=== PATIENT | female | born 1945 | race Caucasian/White ===

== ENCOUNTER 2020-02-29 10:21 | Observation (INO) | payer MEDICARE, SELFPAY ==
[2020-02-29] VITALS (9 sets, daily range): BP systolic 139–168; BP diastolic 54–92; PULSE 58–74; RESP 16–20; TEMP 36.4–36.8; O2SAT 97–100; BMI 36.0; BMI 36.2
--- NOTE | 2020-02-29 10:00 | CT_ITS ---
PROCEDURE: CT HEAD/BRAIN WO CON Referring Doctor: Isma Duggan Patient Age:74Y CLINICAL INDICATION: possible CVA AMS Mental status changes COMPARISON: No exams were available for comparison TECHNIQUE: No IV contrast. Standard axial images were obtained. All CT scans at the facility use one or more dose reduction, viz: automated exposure control, ma/kV adjustment per patient size (including targeted exams where dose is matched to indication, i.e. head), or iterative reconstruction technique. FINDINGS: No intracranial hemorrhage. No discrete acute intracranial findings. No acute territorial infarct appreciated by CT. The head notably tilted in the CT gantry which accounts the asymmetry in the appearance the brain. This along with some minimal associated motion this yield some asymmetric streak artifact pattern. Which slightly degrades images but overall diagnostic study . Cerebral atrophy with what appear to be chronic small vessel microangiopathic ischemic gliotic changes at cerebral hemispheres bilaterally-which appear to account accounting for the patchy low-density in deep white matter. This features most notable above the atria of the lateral ventricles. The mild prominence of lateral ventricles reflects the cerebral atrophy but otherwise the lateral ventricles are clear basal cisterns unremarkable no hydrocephalus.The ventricles and basal cisterns appear clear and satisfactory. No mass or midline shift nor mass effect. No subdural or extra-axial fluid collection is evident. Posterior fossa unremarkable. Skull intact- calvarium unremarkable. Nomastoid effusions. Mastoid air cells are clear but the left mastoid air cell as more developed than the right. Notable cerumen at along external auditory canals bilaterally most evident on left. Middle ear clear. IAC's symmetric. Nosinus air-fluid level. Visualized portions of the paranasal sinuses unremarkable. IMPRESSION: No acute intracranial findings Head is asymmetric in the gantry and there is some minimal motion streak artifact but overall adequate diagnostic study with nothing definitely acute. . Diffuse cerebral atrophy. Chronic small vessel White-matter ischemic gliotic changes at cerebral hemispheres bilaterally Moderate/generous cerumen external auditory canal bilaterally incidentally noted Dictated by: Kirill Villalta MD 02/29/2020 10:28 Kirill Villalta MD in [place] 02/29/2020 10:28
--- NOTE | 2020-02-29 10:04 | PC.NURSE ---
pt to rad.
--- NOTE | 2020-02-29 10:08 | HMH.EDGENADL ---
ED Disposition Clinical Impression: Stroke Disposition: Admitted As Inpatient Condition on Discharge: Fair - Critical Care Critical Care Time: No Attestation: On , the high probability of a clinically significant, sudden or life threatening deterioration of the following system(s) required my full and direct attention, intervention and personal management. The time I documented below is in addition to time spent performing reported procedures but includes the following listed in this critical care notation. Medical Decision Making - Medical Records Medical records reviewed: Yes: I reviewed the patient's medical records. - Ori Inquiry Pt receiving controlled substance: No Vital Signs: 02/29/20 10:00 02/29/20 10:39 02/29/20 11:45 Pulse Rate [Right Brachial] 60 72 65 Respiratory Rate 18 Blood Pressure [Right Arm] 158/69 H 155/79 H 168/92 H Blood Pressure Mean [Right Arm] 98 104 117 Blood Pressure Source [Right Arm] Automatic Cuff Automatic Cuff Blood Pressure Position [Right Arm] Sitting Sitting Sitting 02 Sat by Pulse Oximetry 99 97 100 Oxygen Delivery Method Room Air Room Air Nasal Cannula Oxygen Flow Rate (LPM) 2 - Lab Data Lab results reviewed: Yes: I reviewed the patient's lab results. Lab Results 02/29/20 10:00: WBC 8.0, RBC 4.25, Hgb 11.4 L, Hct 37.1, MCV 87.2, MCH 26.9 L, MCHC 30.8 L, RDW 16.2, Plt Count 355, MPV 8.0, Neut % (Auto) 66.1, Lymph % (Auto) 21.2, [place] % (Auto) 8.4, Eos % (Auto) 3.5, Baso % (Auto) 0.8, Neut # (Auto) 5.3, Lymph # (Auto) 1.7, [place] # (Auto) 0.7, Eos # (Auto) 0.3, Baso # (Auto) 0.1 02/29/20 10:00: Sodium 131 L, Potassium 4.3, Chloride 90 L, Carbon Dioxide 36 H, Anion Gap 9.3, BUN 4 L, Creatinine 0.60, Estimated Creat Clear 81, Estimated GFR 98, Est GFR ( Amer) 118, Glucose 104 H, Calcium 8.9, Total Bilirubin 0.5, AST 26, ALT 13, Alkaline Phosphatase 90, Troponin I < 0.01, Total Protein 7.0, Albumin 3.9, Globulin 3.1, Albumin/Globulin Ratio 1.3 02/29/20 10:00: SARS-CoV-2 IgG Ab (Rapid) Negative, SARS-CoV-2 IgM Ab (Rapid) Negative Result diagrams: 02/29/20 10:00 02/29/20 10:00 Orders (Tests/Meds): ORDERS Category Date Time Status Troponin I Q3H Lab 02/29/20 13:15 Ordered Troponin I Q3H Lab 02/29/20 16:15 Ordered ECG Request by /Nse Stat Y 02/29/20 10:02 Ordered Medical Decision Narrative: Patient is a 74-year-old female with a history of TIA who presents the emergency department today with slurred speech and weakness. Turn for ischemic stroke, hemorrhagic stroke, conversion disorder. Stable. Mildly hypertensive in the 170s. Patient is outside the TPA window. Signs and symptoms consistent with a left MCA territory ischemic stroke. CBC, CMP, troponins, EKG, CT head ordered. Labs and EKG nonactionable. CT head showed no ischemic or hemorrhagic stroke, however there was motion artifact. Admit to medicine for ischemic stroke. General Adult HPI - General Chief complaint: Weakness Stated complaint: weakness Time Seen by Provider: 02/29/20 10:08 Mode of Arrival: EMS Limitations: No Limitations Description of Symptoms (Recalled from ER Triage Doc. by RN): Patient reports she has been feeling off since yesterday. Patient reports she was driving home and started to feel werid and had to pull socket assembler and let someone else drive. Patient reports she had also had trouble getting her words out like she wants and feeling weak all over. - History of Present Illness HPI narrative: Patient is a 74-year-old female with a history of TIA, COPD on 2 L of oxygen at baseline who presents the emergency department today with difficulty speaking. Patient states several days ago she was driving when she began to feel strange. Unable to specify symptoms. Stop driving and she had a fall yesterday. Today she continued to feel off so she came in for evaluation. Patient states she feels generally weak and has slurred speech and difficulty getting her words out. No feve
[2020-02-29 10:19] LABS: Basophils # 0.1 K/mm3 (0-0.2); Basophils % 0.8 % (0.1-2.0); Eosinophils # 0.3 K/mm3 (0.0-0.4); Eosinophils % 3.5 % (0.1-12.0); Hematocrit 37.1 % (37.0-47.0); Hemoglobin 11.4 g/dL (12.2-16.2); Lymphocytes # 1.7 K/mm3 (0.7-4.5); Lymphocytes % 21.2 % (10-50); Mean Corpuscular HGB Conc 30.8 g/dL (31.8-35.4); Mean Corpuscular Hemoglobin 26.9 pg (27.0-31.2); Mean Corpuscular Volume 87.2 fl (81-99); Monocytes # 0.7 K/mm3 (0.1-1.0); Monocytes % 8.4 % (1.7-9.3); Neutrophils # 5.3 K/mm3 (1.8-7.8); Neutrophils % 66.1 % (37.0-80.0); Platelet Count 355 K/mm3 (142-424); Red Blood Count 4.25 M/mm3 (4.20-5.40); Red Cell Distribution Width 16.2 % (11.5-17.5)
[2020-02-29 10:23] LABS: Chloride 90 mmol/L (98-107); Potassium 4.3 mmoL/L (3.5-5.1); Sodium 131 mmol/L (136-145)
[2020-02-29 10:26] LABS: Alanine Aminotransferase 13 U/L (12-78); Albumin Level 3.9 g/dl (3.5-5.0); Albumin/Globulin Ratio 1.3 (1.1-1.8); Alkaline Phosphatase 90 U/L (38-126); Anion Gap 9.3 mEq/L (5-15); Aspartate Amino Transferase 26 U/L (14-36); Bilirubin,Total 0.5 mg/dl (0.2-1.3); Blood Urea Nitrogen 4 mg/dl (7-17); Carbon Dioxide 36 mmol/L (22.0-30.0); Creatinine Clearance Estimated 81 mL/min (50-200); Estimated Glomerular Filt Rate 98 ml/min (>60); GFR (African American) 118 ML/MIN (>60); Globulin 3.1 g/dL (1.3-3.2)
--- NOTE | 2020-02-29 10:26 | PC.NURSE ---
back from CT
[2020-02-29 10:27] LABS: Calcium 8.9 mg/dl (8.4-10.2); Glucose 104 mg/dl (74-100)
[2020-02-29 10:41] LABS: Troponin I < 0.01 ng/ml (0.00-0.034)
--- NOTE | 2020-02-29 10:44 | ECG_ITS ---
APPROVED REPORT Exam: Resting ECG HR:59 bpm ECG Measurements Heart Rate 59 AXES FL 188 P 52 QRSd 88 QRS 11 QT 450 T 3 QTc 445 Conclusion Sinus bradycardia Nonspecific ST abnormality Abnormal ECG Electronically signed by : Carlos Villalobos, 03/01/2020 06:52:53
[2020-02-29 10:45] LABS: Coronavirus 19 IgG Antibody Negative (Negative); Coronavirus 19 IgM Antibody Negative (Negative)
--- NOTE | 2020-02-29 10:58 | PC.NURSE ---
Dr Chepe rodríguez.
--- NOTE | 2020-02-29 11:34 | PC.NURSE ---
Called Dr Mo's office again and the office number went straight to voicemail. Had gear cutting machine operator page him at this time.
--- NOTE | 2020-02-29 11:48 | PC.NURSE ---
speaking to dr medina
--- NOTE | 2020-02-29 14:39 | XR_ITS ---
PROCEDURE: XR CHEST PORTABLE Referring Doctor: Deandre Mo Patient Age:74Y CLINICAL HISTORY: SOA. No previous studies COMPARISON: No exams were available for comparison FINDINGS: Portable upright AP chest with no previous studies for comparison. Upper lung dubois appear clear and mildly hyperexpanded There is mild accentuation markings of the lung bases bilaterally.. This may in part be due to less than optimal inspiration, as the diaphragm is only down to the anterior 4th rib on today's study. At the left base there is some linear density extending towards left CP angle I suspect this reflects minimal linear atelectasis but difficult to exclude early infiltrate lateral left base subtle density at the left CP angle most likely reflecting these features. Of possible scant left pleural effusion could contribute to density left CP angle Mild accentuation markings at the right infrahilar region right base most likely reflecting chronic change but difficult to exclude subtle early infiltrate Heart upper normal in size with normal pulmonary vascularity. No pneumothorax. Ribs and chest wall otherwise unremarkable IMPRESSION: Mild accentuation markings lung bases particularly left lung base but most likely reflects less than optimal inspiration-yielding mild bibasilar atelectasis, along with mild chronic changes . Linear atelectasis atelectasis at lateral left lung base most notable.. (Difficult to the totally exclude subtle early basilar infiltrates with the current appearance but radiographically tend to favor viewing chronic changes and atelectasis at lung bases but correlation required) Dictated by: Kirill Villalta MD 02/29/2020 18:19 Kirill Villalta MD in [place] 02/29/2020 18:19
--- NOTE | 2020-02-29 14:39 | HMH.HP ---
*Admission Date: 02/29/20 *Chief complaint: TIA vs stroke, focal weakness *History of present illness: 74-year-old female who recently moved to [place]. Has significant comorbidities consisting of obesity, COPD on chronic oxygen, A. fib, and depression. She presented to the ER after experiencing 1 to 2 days of slight confusion, difficulty with word finding, and right-sided weakness. She states having noted weakness while driving but denies any loss of consciousness, inability to drive or control vehicle. She thought the symptoms would pass but as they were not better today, she decided to come to the ER for further assessment. On arrival she was noted to have some mild hypertension. CT of her head was unremarkable with no acute findings, chronic microvascular changes. Stable on her baseline 2 L of oxygen. Neuro exam per ER concerning for some right-sided facial droop and weakness in right upper extremity. She was admitted for further management of suspected TIA versus stroke. Given duration of symptom onset, she is outside the window for TPA. On my assessment, she is pleasant with no complaint of worsening shortness of breath, increased cough beyond baseline, chest pain, nausea, vomiting. She does complain of lower extremity weakness though this is arguable as to whether it is new or not. She also states she is got some right-sided soreness and weakness. Her significant other who is with her reports that she has been doing more moving and lifting over the past few weeks due to their move to [place] and this may be a cause for some of her soreness. He also reports that some of her words are more slurred than usual however I did no difficulty understanding speech and interview was performed without her having teeth in place. [facility] History I have reviewed the patient's past medical history: Yes Medical History: Reports:: Atrial Fibrillation, Chronic Obstructive Pulmonary Disease (COPD), Hypertension Denies:: Cancer, Diabetes Mellitus Type 1, Diabetes Mellitus Type 2, MRSA *Have you ever received a pneumonia vaccine?: Yes *Have you received a flu vaccine this season?: Yes Other Medical History: Reports: Fibromyalgia Laterality Cases: Left: Arthroscopy Shoulder Other Surgeries: Yes: Appendectomy, Colonoscopy, Hysterectomy-Total Amputation: No Fractures: No - *Social History Last grade of school completed: GED Smoking Status: Smoker, status unknown Alcohol Intake: current Alcohol Intake Frequency:: 0-2 drinks per day *Occupational Status:: disabled Housing: house Household Members: significant other, family *Travel in the last 8 weeks: Inside the [place] Family Hx:: Unable to obtain Review of Systems - Review of Systems Review of systems:: pertinent systems reviewed and negative unless documented below (14 point review of systems performed, pertinent positives and negatives as per HPI) Meds Home Medications Medication Instructions Recorded Confirmed Type ARIPiprazole [Abilify] 5 mg PO DAILY 02/29/20 02/29/20 History Apixaban [Eliquis 5mg Tablet] 5 mg PO BID 02/29/20 02/29/20 History Aspirin [Adult Aspirin Regimen] 81 mg PO DAILY 02/29/20 02/29/20 History Levocetirizine Dihydrochloride 5 mg PO DAILY 02/29/20 02/29/20 History Loratadine 10 mg PO NEEDED PRN 02/29/20 02/29/20 History Metoprolol Tartrate [Lopressor 100 mg PO BID 02/29/20 02/29/20 History 100mg Tablet] Montelukast Sodium 10 mg PO DAILY 02/29/20 02/29/20 History Pantoprazole Sodium 40 mg PO DAILY 02/29/20 02/29/20 History Trazodone HCl 100 mg PO HS 02/29/20 02/29/20 History buPROPion HCL [Bupropion HCl Sr] 450 mg PO DAILY 02/29/20 02/29/20 History Allergies Allergy/AdvReac Type Severity Reaction Status Date / Time No Known Allergies Allergy Verified 02/29/20 10:08 Exam Vital signs and Labs for Last 24 Hours: Temp Pulse Resp BP Pulse Ox 97.6 F 58 L 20 163/84 H 99 02/29/20 12:59 02/29/20 12:59 02/29/20 12:59 02/29/20 12:59
[2020-02-29 14:48] LABS: Hemoglobin A1C 5.4 % (4.0-6.0)
--- NOTE | 2020-02-29 14:58 | ECG_ITS ---
APPROVED REPORT Exam: Resting ECG HR:61 bpm ECG Measurements Heart Rate 61 AXES ND 162 P 57 QRSd 88 QRS 17 QT 448 T 33 QTc 450 Conclusion Normal sinus rhythm Nonspecific ST abnormality Abnormal ECG Electronically signed by : Carlos Villalobos, 03/01/2020 06:52:18
[2020-02-29 15:00] LABS: NT Pro Brain Natriuretic Pep. 683 pg/mL (0-125)
[2020-02-29 15:23] LABS: ABG Base Excess 5.9 mmol/L (-2.4-2.3); ABG HCO3 31.1 mmhg (22.0-26.0); ABG Oxygen Saturation 98 % (90-100); ABG PH 7.37 mmol/L (7.35-7.45); ABG PO2 111.7 mmhg (80-100); ABG TCO2 32.8 mmhg (23-27)
[2020-02-29 15:27] LABS: ABG PCO2 54.7 mmhg (35.0-45.0); Allen's Test Non Applicable; Source Left Brachial
[2020-02-29 16:04] LABS: Ammonia 12 umol/L (9-30)
--- NOTE | 2020-02-29 16:45 | PC.NURSE ---
Notified Dr. Mo about CO2 of 54.7.
--- NOTE | 2020-02-29 17:00 | PC.NURSE ---
Dr. Mo called and requested patient get a one time dose of lasix 40mg IV. Order faxed to pharmacy and administered. He also requested pt wear a bipap tonight while sleeping due to elevated CO2. Pt aware and she agrees. Respiratory aware. Will pass along to nightman RN. Speech came and assessed the pt. They feel she would be best to have nectar thick liquids with a mechanical soft diet and chopped meats. Order placed and Dr. Mo is aware.
--- NOTE | 2020-02-29 17:29 | HMH.SLDYSPHA ---
Speech & Language Evaluation Speech/Language Dysphagia Evaluation Start: 02/29/20 17:14 Freq: ONCE Status: Active Protocol: Document 02/29/20 17:14 TOYIN (Rec: 02/29/20 17:28 TOYIN [id number]) Dysphagia Assess/Goals/Plan Assessment Date of Evaluation: 02/29/20 Evaluation Type Initial Certification Assessment/Problems dysphagia Does Patient Qualify for Service Yes Qualify/Failure Comment Patient presents with right sided weakness of face and neck; She reports an increased difficulty with swallowing various consistencies over the past few days; Ms. Pascal did not have her dentures with her today, she was able to follow verbal commands and appears to be a good canditate for therapy if her weakness does not resolve on its own. Recommendations PHYSICIAN CERTIFICATION: The specified therapy services are required, authorized, and reviewed every 30 days. Diet Recommendations Mechanical Soft Liquid Type Recommendations [place] Consistency SL Swallow Guidelines High aspiration risk,Eat at slow rate Dysphagia Swallow Precautions/Strategies Turn Head Right Place Food on Left side of Mouth Comment Patient will be followed by speech therapy to evaluate for diet upgrades after she regains some strength and has her dentures to eat and drink with. Plan Pt/Guardian verbally ack understanding Yes of dx/prognosis/goals Pt/Guardian verbally ack understanding Yes of/consent to tx prog G -code Required No Shelter Goals Diet Mechanical soft with chopped meats with Liquids [place] Thick Pt will be able to eat foods w/more Yes normal consistency Education Instructions provided Patient and nursing staff were educated on diet recommendation as well as compensatory strategies; Pt/Caregiver able to recall information Able to recall/restate Reinforcement needed No Speech & Language HPI History Present Illness Description of Patient Problem Patient presents with right side weakness; She was alert and oriented. She was able to
--- NOTE | 2020-02-29 17:36 | PC.NURSE ---
Dietary aware of diet change.
--- NOTE | 2020-02-29 18:21 | PC.NURSE ---
PT HAS TOLERATED 2L NC WELL THROUGHOUT SHIFT. WILL PASS ALONG TO CAREER CENTER DIRECTOR RN TO HOLD TRAZODONE UNLESS PT IS UNABLE TO FALL ASLEEP BY [address] GUTIERREZ. NO REPORTS OF PAIN OR SOB. PT HAS DIURESED WELL AFTER RECEIVING LASIX. CLEAR YELLOW URINE NOTED. PT HAS HAD 2 LIQUID BM THUS FAR. PT IS CURRENTLY SITTING IN BED WITH CALL LIGHT WITHIN REACH. BED IN LOWEST POSITION. VSS. WILL CONTINUE TO MONITOR.
--- NOTE | 2020-03-01 00:58 | PC.NURSE ---
patient tolerating bipap without incident. purwick in place for incontinence
[2020-03-01 03:46] VITALS: BP 153/72; PULSE 64; RESP 21; TEMP 37.3; O2SAT 98
--- NOTE | 2020-03-01 04:18 | PC.NURSE ---
patient requested break off of bipap, o2 at 2 l nc applied. patient consistently word bipap for 5 hours while sleeping
--- NOTE | 2020-03-01 05:10 | PC.NURSE ---
patient ready to go back on cpap, patient stated she has been in the process of moving and she didn't know which box her home cpap was in .
--- NOTE | 2020-03-01 05:18 | PC.NURSE ---
patient discussed cpap with respiratory therapy and decided to leave mask off and remain on nc at 2 l .
--- NOTE | 2020-03-01 05:19 | PC.NURSE ---
breath sounds remain course and diminished, sats 98% on 2 l nc. patient remains awake alert and oriented, continues to have slight weakness and decreased sensation to right lower extremity. pulse irregular, purwick in place for nocturnal incontinence.
[2020-03-01 05:28] VITALS: BMI 35.0
[2020-03-01 07:01] LABS: Basophils # 0.1 K/mm3 (0-0.2); Basophils % 0.7 % (0.1-2.0); Eosinophils # 0.2 K/mm3 (0.0-0.4); Eosinophils % 3.3 % (0.1-12.0); Hematocrit 36.2 % (37.0-47.0); Lymphocytes # 1.9 K/mm3 (0.7-4.5); Lymphocytes % 25.7 % (10-50); Mean Corpuscular HGB Conc 30.5 g/dL (31.8-35.4); Mean Corpuscular Hemoglobin 26.8 pg (27.0-31.2); Mean Corpuscular Volume 87.8 fl (81-99); Mean Platelet Volume 7.5 fl (7.4-10.4); Monocytes # 0.5 K/mm3 (0.1-1.0); Monocytes % 7.3 % (1.7-9.3); Neutrophils # 4.6 K/mm3 (1.8-7.8); Neutrophils % 63.1 % (37.0-80.0); Platelet Count 336 K/mm3 (142-424); Red Blood Count 4.13 M/mm3 (4.20-5.40); Red Cell Distribution Width 16.3 % (11.5-17.5); White Blood Count 7.3 K/mm3 (4.8-10.8)
[2020-03-01 07:18] LABS: Alanine Aminotransferase 11 U/L (12-78); Albumin Level 3.5 g/dl (3.5-5.0); Albumin/Globulin Ratio 1.2 (1.1-1.8); Alkaline Phosphatase 95 U/L (38-126); Anion Gap 7.7 mEq/L (5-15); Aspartate Amino Transferase 22 U/L (14-36); Bilirubin,Total 0.3 mg/dl (0.2-1.3); Blood Urea Nitrogen 4 mg/dl (7-17); Calcium 8.7 mg/dl (8.4-10.2); Carbon Dioxide 37 mmol/L (22.0-30.0); Chloride 94 mmol/L (98-107); Creatinine Clearance Estimated 79 mL/min (50-200); Estimated Glomerular Filt Rate 98 ml/min (>60); GFR (African American) 118 ML/MIN (>60); Glucose 117 mg/dl (74-100); Magnesium 1.9 mg/dl (1.6-2.3); Potassium 3.7 mmoL/L (3.5-5.1); Sodium 135 mmol/L (136-145); Total Protein,Serum 6.5 g/dl (6.3-8.2)
[2020-03-01 08:00] VITALS: BP 133/77; PULSE 66; RESP 16; TEMP 36.9; O2SAT 97
--- NOTE | 2020-03-01 09:01 | HMH.ACPN2 ---
Internal Medicine - PN: Subj *Date: 03/01/20 *Time: 10:05 Interval history: no acute events overnight. Patient was seen by speech therapy yesterday. Adjustments made to her diet with thickened liquids and pur?es. Received a dose of Lasix last night as well, put out about 2 L. Is -800 cc as of this morning. Stable on 2 L nasal cannula oxygen. Patient denies any new deficits, headache, chest pain, nausea, worsening shortness of breath. Ambulating with minimal assistance to the bathroom. Afebrile, hemodynamically stable. Exam Vital signs and Labs for Last 24 Hours: Temp Pulse Resp BP Pulse Ox 99.1 F 64 21 153/72 H 98 03/01/20 03:46 03/01/20 03:46 03/01/20 03:46 03/01/20 03:46 03/01/20 03:46 Laboratory Results - last 24 hr 02/29/20 10:00: WBC 8.0, RBC 4.25, Hgb 11.4 L, Hct 37.1, MCV 87.2, MCH 26.9 L, MCHC 30.8 L, RDW 16.2, Plt Count 355, MPV 8.0, Neut % (Auto) 66.1, Lymph % (Auto) 21.2, [place] % (Auto) 8.4, Eos % (Auto) 3.5, Baso % (Auto) 0.8, Neut # (Auto) 5.3, Lymph # (Auto) 1.7, [place] # (Auto) 0.7, Eos # (Auto) 0.3, Baso # (Auto) 0.1 02/29/20 10:00: Sodium 131 L, Potassium 4.3, Chloride 90 L, Carbon Dioxide 36 H, Anion Gap 9.3, BUN 4 L, Creatinine 0.60, Estimated Creat Clear 81, Estimated GFR 98, Est GFR ( Amer) 118, Glucose 104 H, Calcium 8.9, Total Bilirubin 0.5, AST 26, ALT 13, Alkaline Phosphatase 90, Troponin I < 0.01, Total Protein 7.0, Albumin 3.9, Globulin 3.1, Albumin/Globulin Ratio 1.3 02/29/20 10:00: SARS-CoV-2 IgG Ab (Rapid) Negative, SARS-CoV-2 IgM Ab (Rapid) Negative 02/29/20 10:00: Hemoglobin A1c 5.4 02/29/20 10:00: TSH 2.90 02/29/20 10:00: NT-Pro-B Natriuret Pep 683 H 02/29/20 14:15: Specimen Source Left brachial, O2 % 2 lpm nc, ABG pH 7.37, ABG pCO2 54.7 H, ABG pO2 111.7 H, ABG HCO3 31.1 H, ABG Total CO2 32.8 H, ABG O2 Saturation 98, ABG Base Excess 5.9 H, Juice Test Non applicable 02/29/20 15:45: Ammonia 12 03/01/20 06:45: WBC 7.3, RBC 4.13 L, Hgb 11.0 L, Hct 36.2 L, MCV 87.8, MCH 26.8 L, MCHC 30.5 L, RDW 16.3, Plt Count 336, MPV 7.5, Neut % (Auto) 63.1, Lymph % (Auto) 25.7, [place] % (Auto) 7.3, Eos % (Auto) 3.3, Baso % (Auto) 0.7, Neut # (Auto) 4.6, Lymph # (Auto) 1.9, [place] # (Auto) 0.5, Eos # (Auto) 0.2, Baso # (Auto) 0.1 03/01/20 06:45: Sodium 135 L, Potassium 3.7, Chloride 94 L, Carbon Dioxide 37 H, Anion Gap 7.7, BUN 4 L, Creatinine 0.60, Estimated Creat Clear 79, Estimated GFR 98, Est GFR ( Amer) 118, Glucose 117 H, Calcium 8.7, Magnesium 1.9, Total Bilirubin 0.3, AST 22, ALT 11 L, Alkaline Phosphatase 95, Total Protein 6.5, Albumin 3.5 D, Globulin 3.0, Albumin/Globulin Ratio 1.2 I & O for Last 24 hours: Intake & Output 02/27/20 02/28/20 02/29/20 03/01/20 23:59 23:59 23:59 23:59 Intake Total 980 / 980 Output Total 1100 / 1300 800 / 800 Balance -120 / -320 -800 / -800 Weight 104.978 kg 101.321 kg Narrative: - Constitutional no acute distress, obese, chronically ill appearing - *Routine HEENT Exam Head: Present: normocephalic Eye: Present: EOMI, PERRL ENT: Present: mucous membranes moist Comments: Edentulous, wears dentures - *Routine Neck Exam Present: supple. Absent: lymphadenopathy - *Routine Respiratory Exam Present: prolonged expiratory phase, significant improvement in crackles, diminished air movement. Absent: wheezes - *Routine Cardiovascular Exam Present: RRR - *Routine Abdominal Exam Present: soft, normoactive bowel sounds. Absent: tenderness Comments: Protuberant - *Routine Extremities Exam Present: edema (Trace). Absent: cyanosis, clubbing Comments: Chronic stasis dermatitis of lower extremities, pulses weak in bilateral lower extremities - *Routine Skin Exam Present: warm. Absent: rash - *Routine Neurological Exam Present: alert, oriented X3. Absent: clonus, tremors Almost complete resolution of asymmetry of right forehead with elevation, remainder of cranial nerves intact. Speech intelligible with teeth out, more clear with demetrice
--- NOTE | 2020-03-01 12:04 | HMH.PTEV ---
Physical Therapy Evaluation Rehab PT IP Evaluation Start: 02/29/20 14:41 Freq: ONCE Status: Active Protocol: Document 03/01/20 12:00 PHORPÉREZ (Rec: 03/01/20 12:04 PHORNE [id number]) Subjective/History History History 74 yowf adm to [facility] with R sided weakness, facial droop, and general malaise. She reports living with family, no steps to enter the home, uses a quad cane for ambulation. She reports feeling better today, no c/o numbness or weakness at this time. Subjective Subjective No current c/o pain or weakness. Rehab PT IP Eval Objective Appearance Patient Behavior Appropriate Patient Orientation Person,Place,Time Difficulty following instructions none Speech Pattern Clear Ambulation Patient Able to Ambulate Yes Ambulation Observation IP General Gait Pattern Observation Wide Based Gait Ambulation Distance (feet) 20 Ambulation Assistive Device Straight Cane Ambulation Ability Supervision/Stand by Balance Ability to Arise Able, uses arms to help Sitting Balance Steady, safe Standing Balance Steady, wide stance Dynamic Sitting Balance Ability Good Dynamic Standing Balance Ability Good Transfers Bed Transfer Ability Supervision/Stand by Chair Transfer Ability Supervision/Stand by Sit to Stand Bed Transfer Ability Supervision/Stand by Sit to Stand Chair Transfer Ability Supervision/Stand by ROM All Extremities PT ROM Status WFL MMT All Extremities PT MMT WFL Rehab PT IP prob,goals,plan Problems Date of Evaluation: 03/01/20 Discharge Plan PT Discharge Plan Pt appears to be back to baseline for mobility and transfers, no discernable difference in strength from R to L sides. Pt is appropriate to return home once medically stable, no inpatient therapy needs at this time. She would likely benefit from outpatient therapy services. G -code Required No Eval Complexity Eval Charge Codes 36292 - Moderate Complexity PHYSICIAN CERTIFICATION: I certify the specified therapy services for Sharifa Pascal are required, authorized, and reviewed every 30 days.
--- NOTE | 2020-03-01 13:28 | HMH.PHAVTE ---
[facility] Pharmacy VTE Monitoring - Patient Demographics Admission date: 03/01/20 Report Date: 03/01/20 Time: 13:28 Allergies/Adverse Reactions: Patient Allergies No Known Allergies Allergy (Verified 02/29/20 10:08) Height: 1.7 m Weight: 101.321 kg Patient Problems: Current Active Problems Stroke (Acute) Hypertension (Chronic) A-fib (Chronic) Chronic anticoagulation (Chronic) Obesity (BMI 30-39.9) (Chronic) Acute exacerbation of CHF (congestive heart failure) (Acute) Chronic hypoxemic respiratory failure (Chronic) Hypercapnia (Acute) COPD (chronic obstructive pulmonary disease) (Chronic) Depression (Chronic) - VTE Risk Labs: VTE Related Lab Results Hgb 11.0 g/dL (12.2-16.2) L 03/01/20 06:45 Hct 36.2 % (37.0-47.0) L 03/01/20 06:45 Plt Count 336 K/mm3 (142-424) 03/01/20 06:45 BUN 4 mg/dl (7-17) L 03/01/20 06:45 Creatinine 0.60 mg/dl (0.52-1.04) 03/01/20 06:45 Estimated Creat Clear 79 mL/min (50-200) 03/01/20 06:45 Was VTE Risk Assessment Performed: Yes VTE Score: 8 VTE Risk Level: Moderate Risk - Prophylaxis Types of VTE Prophylaxis: TEDS Knee High (KETAN HOSE ORDRED) Location of Applied Device: Not Applicable
[2020-03-01 16:00] VITALS: BP 127/66; PULSE 62; RESP 18; TEMP 36.3; O2SAT 98
--- NOTE | 2020-03-01 17:29 | PC.NURSE ---
PT HAS DONE WELL TODAY. NO C/O PAIN OR SOA. PT HAS BEEN WEARING 2L NC ALL DAY. TRILOGY AT BEDSIDE TO BE WORN TONIGHT. PT HAS AMBULATED T/O ROOM, SAT UP IN HER CHAIR SOME TODAY TOO. VSS. WILL CONT. TO MONITOR.
[2020-03-01 18:10] VITALS: O2SAT 91
[2020-03-01 20:00] VITALS: BP 119/63; PULSE 63; RESP 18; TEMP 36.8; O2SAT 99
[2020-03-02 03:56] VITALS: BP 164/78; PULSE 61; RESP 17; TEMP 36.6; O2SAT 100
--- NOTE | 2020-03-02 03:58 | PC.NURSE ---
No acute changes noted. Pt has been up to BR and BSC this shift with assist x1. Has tolerated well. Total urine output is 300 thus far. She remained on 2L NC until trilogy was placed on pt. She has tolerated it well. No c/o soa. Lungs diminished. BS active. Medications administered per mar. Will continue to monitor.
[2020-03-02 05:04] VITALS: BMI 35.3
[2020-03-02 07:21] LABS: Basophils % 0.4 % (0.1-2.0); Eosinophils # 0.3 K/mm3 (0.0-0.4); Eosinophils % 3.8 % (0.1-12.0); Hematocrit 35.5 % (37.0-47.0); Lymphocytes # 2.1 K/mm3 (0.7-4.5); Lymphocytes % 26.3 % (10-50); Mean Corpuscular HGB Conc 30.9 g/dL (31.8-35.4); Mean Corpuscular Hemoglobin 26.9 pg (27.0-31.2); Mean Platelet Volume 7.7 fl (7.4-10.4); Monocytes # 0.7 K/mm3 (0.1-1.0); Monocytes % 8.3 % (1.7-9.3); Neutrophils # 4.8 K/mm3 (1.8-7.8); Neutrophils % 61.3 % (37.0-80.0); Platelet Count 354 K/mm3 (142-424); Red Blood Count 4.08 M/mm3 (4.20-5.40); Red Cell Distribution Width 16.2 % (11.5-17.5); White Blood Count 7.8 K/mm3 (4.8-10.8)
[2020-03-02 07:24] LABS: Chloride 93 mmol/L (98-107); Potassium 3.7 mmoL/L (3.5-5.1); Sodium 132 mmol/L (136-145)
[2020-03-02 07:26] LABS: Alanine Aminotransferase 9 U/L (12-78); Aspartate Amino Transferase 23 U/L (14-36); Blood Urea Nitrogen 6 mg/dl (7-17); Creatinine Clearance Estimated 80 mL/min (50-200); Estimated Glomerular Filt Rate 121 ml/min (>60); GFR (African American) 146 ML/MIN (>60)
[2020-03-02 07:27] LABS: Albumin Level 3.5 g/dl (3.5-5.0); Albumin/Globulin Ratio 1.2 (1.1-1.8); Alkaline Phosphatase 72 U/L (38-126); Anion Gap 5.7 mEq/L (5-15); Bilirubin,Total 0.5 mg/dl (0.2-1.3); Calcium 8.6 mg/dl (8.4-10.2); Carbon Dioxide 37 mmol/L (22.0-30.0); Globulin 2.9 g/dL (1.3-3.2); Glucose 110 mg/dl (74-100); Total Protein,Serum 6.4 g/dl (6.3-8.2)
[2020-03-02 08:00] VITALS: BP 130/63; PULSE 69; RESP 18; TEMP 36.9; O2SAT 93
--- NOTE | 2020-03-02 08:09 | HMH.DCSUM ---
General - General Admission date:: 02/29/20 Discharge date: 03/02/20 HPI HPI: 74-year-old female who recently moved to [place]. Has significant comorbidities consisting of obesity, COPD on chronic oxygen, A. fib, and depression. She presented to the ER after experiencing 1 to 2 days of slight confusion, difficulty with word finding, and right-sided weakness. She states having noted weakness while driving but denies any loss of consciousness, inability to drive or control vehicle. She thought the symptoms would pass but as they were not better today, she decided to come to the ER for further assessment. On arrival she was noted to have some mild hypertension. CT of her head was unremarkable with no acute findings, chronic microvascular changes. Stable on her baseline 2 L of oxygen. Neuro exam per ER concerning for some right-sided facial droop and weakness in right upper extremity. She was admitted for further management of suspected TIA versus stroke. Given duration of symptom onset, she is outside the window for TPA. On my assessment, she is pleasant with no complaint of worsening shortness of breath, increased cough beyond baseline, chest pain, nausea, vomiting. She does complain of lower extremity weakness though this is arguable as to whether it is new or not. She also states she is got some right-sided soreness and weakness. Her significant other who is with her reports that she has been doing more moving and lifting over the past few weeks due to their move to [place] and this may be a cause for some of her soreness. He also reports that some of her words are more slurred than usual however I did no difficulty understanding speech and interview was performed without her having teeth in place. Hospital Course Hospital Course: Patient was admitted, extensive work-up was done, patient was essentially ruled out for acute stroke with negative CT scan and the fact that her dysphagia and dysarthria improved with putting her dentures in. She was felt to have more of a CHF exacerbation, and considered to have exacerbation of diastolic dysfunction given preliminarily normal ejection fraction on echocardiogram today of 55%. She responded very nicely to Lasix and her blood pressure has been well controlled on metoprolol and LENORA inhibitor. This morning she was feeling great, much better, able to eat and drink well, and she will be discharged home with follow-up in our office to establish care. She will be placed on Lasix daily, she will be placed on her regular medications including statin therapy for her higher vascular disease risk. She will be in the care of her significant other and grandson and follow dietary recommendations as previously. Please note patient will be prescribed 2 L nasal cannula for his chronic COPD. Objective Vital signs: Temp Pulse Resp BP Pulse Ox 97.8 F 61 17 164/78 H 100 03/02/20 03:56 03/02/20 03:56 03/02/20 03:56 03/02/20 03:56 03/02/20 03:56 no acute distress - *Routine HEENT Exam Head: Present: normocephalic Eye: Present: EOMI, PERRL ENT: Present: mucous membranes moist - *Routine Neck Exam Present: supple - *Routine Respiratory Exam Present: CTA bilaterally - *Routine Cardiovascular Exam Present: RRR, murmur - *Routine Abdominal Exam Present: soft, normoactive bowel sounds. Absent: tenderness - *Routine Extremities Exam Absent: cyanosis, clubbing, edema - *Routine Skin Exam Present: warm. Absent: rash - Detailed Eye Exam Eyelids: Bilateral normal inspection Results Labs on day of discharge: Labs from last 24 hours 03/02/20 03/02/20 05:22 05:22 WBC 7.8 RBC 4.08 L Hgb 11.0 L Hct 35.5 L MCV 87.0 MCH 26.9 L MCHC 30.9 L RDW 16.2 Plt Count 354 MPV 7.7 Neut % (Auto) 61.3 Lymph % (Auto) 26.3 [place] % (Auto) 8.3 Eos % (Auto) 3.8 Baso % (Auto) 0.4 Neut # (Auto) 4.8 Lymph # (Auto) 2.1 [place] # (Auto) 0.
[2020-03-02 09:30] VITALS: O2SAT 93
--- NOTE | 2020-03-02 10:38 | PC.NURSE ---
09:30 Late Entry - Routine assessment completed. Pt. A&OX4. Lungs CTA, Heart at RR, BS present x4 quad. Pt. denies pain, and denies needs, will continue to monitor.
--- NOTE | 2020-03-02 12:07 | HMH.PHAINT ---
DISCHARGE COUNSELING-DISCUSSED DISCHARGE MEDICATIONS WITH PATIENT INCLUDING NEW MEDS: PLAVIX, ATORVASTATIN, AND LASIX.
--- NOTE | 2020-03-02 12:47 | PC.NURSE ---
Discharge instructions given, Questions encouraged and answered. Pt. awaiting family member to arrive. Pt. denies further needs.
--- NOTE | 2020-03-02 13:30 | PC.NURSE ---
Pt. left via wheelchair, wiith staff and spouse.
--- NOTE | 2020-03-02 18:28 | CA_ITS ---
APPROVED REPORT EXAM: Comprehensive 2D, Doppler, and color-flow Echocardiogram Technical Program Manager: Madhavi Bryan RT(R) Ht: 5 ft 7 in Wt: 231lbs BSA: 2.15 BP: 153/72 mmHg Indications: CVA,CHF,COPD,SMOKER,HTN,H/O AF TDS SECONDARY TO COPD/BODY HABITUS 2D Dimensions LVOT 1.50 cm (M/F) 1.5-2.5 M-Mode Dimensions RVDd 2.98 cm (0.9-2.6) LA Diam 4.44 cm (1.9-4.0) LVDd 4.85 cm (3.5-5.7) Ao Diam 2.96 cm (2.0-3.7) LVDs 3.60 cm (3.5-5.7) IVSd 0.85 cm (0.6-1.1) PWd 0.80 cm (0.6-1.1) EF (Teich) 50.60% FS 25.80% EDV (Teich) 110.20 mL ESV (Teich) 54.40 mL LV Diastology E Decel Time 253.00 (160-240 msec) E/A Ratio 1.2 MED E' 7.30 (< 7 cm/sec) E'/MED E' Ratio 13.48 (>14) LAT E' 6.00 (<10 cm/sec) E/LAT E' Ratio 16.40 (>14) Aortic Valve LVOT Max 126.00 (70-110 cm/s) LVOT VTI 28.61 cm AoV Peak Berny. 174.00 (50-130 cm/s) AO Peak GR. 12.20 mmHg AO Mean GR. 7.50 (<5 mmHg) AO VTI 39.49 (18-25 cm) ROULA (VTI) 1.28 (2.5-4.5 cm2) Mitral Valve MV E Max Berny. 98.00 (40-130 cm/s) MV A Velocity 79.00 (40-130 cm/s) E/A Ratio 1.25 MV Decel. Time 253.00 (160-240 ms) MV PHT 74.00 ms Tricuspid Valve TR P. Velocity 237.00 cm/s RAP Estimate 10.00 mmHg RVSP 32.50 mmHg Left Ventricle Technically difficult study because of the patient factors and poor acoustic windows. Left atrium is mildly enlarged enlarged, left ventricle is normal size, mild concentric left ventricular hypertrophy, visually estimated ejection fraction 55% with no regional wall motion abnormality, grade 1 diastolic dysfunction seen with tissue Doppler evidence of raise left atrial pressure. Right Ventricle Right atrium and right ventricle mildly enlarged with normal contractility. Aortic Valve Aortic valve is thickened and calcified, Doppler is not indicated for aortic stenosis or aortic insufficiency. Mitral Valve Mitral valve has mitral annular calcification which extends in both anterior posterior mitral leaflet, mitral inflow is not suggestive of mitral stenosis, there is mild mitral regurgitation. Tricuspid Valve Tricuspid valve is grossly normal, there is mild tricuspid regurgitation, tricuspid regurgitation jet velocity is inadequate for calculation of the right ventricular systolic pressure. Pulmonic Valve Pulmonic valve is poorly visualized. Great Vessels Aortic root is normal size. Pericardium No significant pericardial effusion noted. Conclusion 1. Biatrial enlargement, normal left ventricular size, mild concentric left ventricular hypertrophy, visually estimated ejection fraction 55% with no regional wall motion abnormality, grade 1 diastolic dysfunction seen with tissue Doppler evidence of raise left atrial pressure. Technically very difficult study. 2. Mildly enlarged right ventricle with normal contractility. 3. Thickened and calcified aortic valve without Doppler evidence of aortic stenosis aortic insufficiency. 4. Mild mitral and tricuspid regurgitation. 5. No significant pericardial effusion noted. Electronically signed by : Alec Merino, 03/03/2020 06:10:03
== END 2020-03-02 13:30 | disposition home or self-care (01) ==
LOC: ER 12:15 → 2ND 12:24
PROVIDERS: Admitting Provider Internal Medicine Adolescent Medicine; Emergency Provider Emergency Medicine; Visit Provider Internal Medicine Adolescent Medicine
DX: J96.11 Chronic respiratory failure with hypoxia (principal); J44.9 Chronic obstructive pulmonary disease, unspecified; Z99.81 Dependence on supplemental oxygen; I48.0 Paroxysmal atrial fibrillation; I11.0 Hypertensive heart disease with heart failure; I50.32 Chronic diastolic (congestive) heart failure; Z79.01 Long term (current) use of anticoagulants; Z79.899 Other long term (current) drug therapy
CPT/HCPCS: 36415; 70450; 71045; 80053; 82140; 82803; 83036; 83735; 83880; 84443; 84484; 85025; 86328; 92526; 92610; 93005; 93306; 97162; 99284; G0378

== ENCOUNTER 2020-03-04 18:05 | Emergency (ER) | payer MEDICARE, SELFPAY ==
--- NOTE | 2020-03-04 18:03 | ECG_ITS ---
APPROVED REPORT Exam: Resting ECG HR:97 bpm ECG Measurements Heart Rate 97 AXES CO 184 P 59 QRSd 80 QRS 11 QT 360 T 71 QTc 457 Conclusion Normal sinus rhythm Normal ECG Electronically signed by : Carlos Villalobos, 03/06/2020 19:22:18
[2020-03-04 18:06] VITALS: BP 132/63; BP 145/47; PULSE 103; PULSE 106; RESP 20; RESP 23; TEMP 37.2; O2SAT 94; O2SAT 96; BMI 37.1
--- NOTE | 2020-03-04 18:15 | XR_ITS ---
PROCEDURE: XR CHEST PORTABLE CLINICAL HISTORY: sob, shortness of breath, cough COMPARISON: CR XR CHEST PORTABLE from 02/29/2020 FINDINGS: There are low lung volumes. There is cardiomegaly with mild prominence of the mediastinum which may in part be due to the poor inspiration and mild rotation. Follow-up may confirm. Remains mild left basilar atelectasis or infiltrate. Status post left shoulder replacement IMPRESSION: No change mild left basilar atelectasis or infiltrate with cardiomegaly Dictated by: Juice Shaw MD 03/05/2020 06:13 Juice Shaw MD in [place] 03/05/2020 06:13
[2020-03-04 18:41] LABS: Basophils % 0.4 % (0.1-2.0); Eosinophils # 0.2 K/mm3 (0.0-0.4); Eosinophils % 1.6 % (0.1-12.0); Hematocrit 36.6 % (37.0-47.0); Lymphocytes % 19.7 % (10-50); Mean Corpuscular HGB Conc 30.1 g/dL (31.8-35.4); Mean Corpuscular Volume 89.6 fl (81-99); Mean Platelet Volume 7.7 fl (7.4-10.4); Monocytes # 0.8 K/mm3 (0.1-1.0); Monocytes % 7.5 % (1.7-9.3); Neutrophils # 7.3 K/mm3 (1.8-7.8); Neutrophils % 70.9 % (37.0-80.0); Platelet Count 334 K/mm3 (142-424); Red Blood Count 4.09 M/mm3 (4.20-5.40); Red Cell Distribution Width 15.8 % (11.5-17.5); White Blood Count 10.3 K/mm3 (4.8-10.8)
[2020-03-04 18:44] LABS: Chloride 92 mmol/L (98-107)
[2020-03-04 18:45] LABS: Potassium 4.6 mmoL/L (3.5-5.1); Sodium 133 mmol/L (136-145)
--- NOTE | 2020-03-04 18:45 | HMH.EDGENADL ---
ED Disposition Clinical Impression: COPD (chronic obstructive pulmonary disease) Qualifiers: COPD type: unspecified COPD Qualified Code(s): J44.9 - Chronic obstructive pulmonary disease, unspecified Disposition: Home, Self-Care Condition on Discharge: Good Referrals: Deandre Mo MD [Primary Care Provider] - - Critical Care Critical Care Time: No Attestation: On 03/04/20, the high probability of a clinically significant, sudden or life threatening deterioration of the following system(s) required my full and direct attention, intervention and personal management. The time I documented below is in addition to time spent performing reported procedures but includes the following listed in this critical care notation. Medical Decision Making - Ori Inquiry Pt receiving controlled substance: No Ori was queried for this patient: No Vital Signs: 03/04/20 18:06 03/04/20 20:04 Temperature 98.9 F Temperature Source Oral Pulse Rate [Right Radial] 103 H 98 H Respiratory Rate 20 20 Blood Pressure [Right Arm] 132/63 119/69 Blood Pressure Mean [Right Arm] 86 85 Blood Pressure Source [Right Arm] Automatic Cuff Blood Pressure Position [Right Arm] Sitting 02 Sat by Pulse Oximetry 96 93 L Oxygen Delivery Method Room Air - Lab Data Lab Results 03/04/20 18:27: WBC 10.3 D, RBC 4.09 L, Hgb 11.0 L, Hct 36.6 L, MCV 89.6, MCH 27.0, MCHC 30.1 L, RDW 15.8, Plt Count 334, MPV 7.7, Neut % (Auto) 70.9, Lymph % (Auto) 19.7, [place] % (Auto) 7.5, Eos % (Auto) 1.6, Baso % (Auto) 0.4, Neut # (Auto) 7.3, Lymph # (Auto) 2.0, [place] # (Auto) 0.8, Eos # (Auto) 0.2, Baso # (Auto) 0.0 03/04/20 18:27: Sodium 133 L, Potassium 4.6 D, Chloride 92 L, Carbon Dioxide 38 H, Anion Gap 7.6, BUN 9 D, Creatinine 0.70 D, Estimated Creat Clear 81, Estimated GFR 82, Est GFR ( Amer) 99 D, Glucose 115 H, Calcium 9.1, Total Bilirubin 0.4, AST 24, ALT 11 L, Alkaline Phosphatase 81, Troponin I < 0.01, Total Protein 7.0, Albumin 3.9, Globulin 3.1, Albumin/Globulin Ratio 1.3 03/04/20 18:27: NT-Pro-B Natriuret Pep 381 H Result diagrams: 03/04/20 18:27 03/04/20 18:27 Orders (Tests/Meds): ORDERS Category Date Time Status CXR --portable [XR chest portable] Stat Exams 03/04/20 18:15 Taken Troponin I Q3H Lab 03/04/20 21:30 Ordered Troponin I Q3H Lab 03/05/20 00:30 Ordered EKG Request [ECG Request by /Aylin] Stat Y 03/04/20 18:16 Ordered - Radiology Data #1 Image(s): Chest Image Reviewed: Yes I reviewed the patient's radiology image Preliminary Findings: Normal/NAD - ECG Data Tracing #1 Normal sinus rhythm 97 bpm, normal intervals, no ST elevation or depression, no ectopy. ECG initial impression date: 03/04/20 ECG initial impression time: 18:10 Medical Decision Narrative: 74yo F evaluated for shortness of breath. Differential diagnosis includes but is not limited to: COPD exacerbation, CHF exacerbation, ACS, PE, pneumonia. Patient is in no acute distress on this presentation. She is currently satting 94% on room air. Able to speak in complete sentences. Nontender to palpate throughout. Labs are pending at this time. EKG is unremarkable. Pending chest x-ray. CXR unremarkable. Labs unremarkable w/ BNP less than last eval. Pt states she feels well and would like to return home. General Adult HPI - General Chief complaint: Shortness of Breath/Dyspnea Stated complaint: SOA Time Seen by Provider: 03/04/20 18:10 Mode of Arrival: EMS Limitations: Physical Limitations Description of Symptoms (Recalled from ER Triage Doc. by RN): PT states the last few days she has increased with SOA and having a hard time getting around at home due to weakness and the SOA - History of Present Illness HPI narrative: 74yo F with past medical history seen for COPD, A. fib, TIA, hypertension is evaluated emergency department secondary to shortness of breath. Patient reports she wears 2 L nasal cannula during the day and 4 L nasal cannula
[2020-03-04 18:47] LABS: Alanine Aminotransferase 11 U/L (12-78); Aspartate Amino Transferase 24 U/L (14-36); Blood Urea Nitrogen 9 mg/dl (7-17); Creatinine Clearance Estimated 81 mL/min (50-200); Estimated Glomerular Filt Rate 82 ml/min (>60); GFR (African American) 99 ML/MIN (>60)
[2020-03-04 18:48] LABS: Albumin Level 3.9 g/dl (3.5-5.0); Albumin/Globulin Ratio 1.3 (1.1-1.8); Alkaline Phosphatase 81 U/L (38-126); Anion Gap 7.6 mEq/L (5-15); Bilirubin,Total 0.4 mg/dl (0.2-1.3); Calcium 9.1 mg/dl (8.4-10.2); Carbon Dioxide 38 mmol/L (22.0-30.0); Globulin 3.1 g/dL (1.3-3.2); Glucose 115 mg/dl (74-100)
[2020-03-04 19:07] LABS: Troponin I < 0.01 ng/ml (0.00-0.034)
[2020-03-04 19:21] LABS: NT Pro Brain Natriuretic Pep. 381 pg/mL (0-125)
[2020-03-04 20:04] VITALS: BP 119/69; PULSE 98; RESP 20; O2SAT 93
[2020-03-04 21:04] VITALS: BP 119/69; PULSE 96; RESP 18; TEMP 37.2; O2SAT 94
--- NOTE | 2020-03-04 21:42 | PC.NURSE ---
I spoke with Pt's daughter who is listed as Next of kin, she will call her nephew to come get pt.
--- NOTE | 2020-03-04 22:00 | PC.NURSE ---
After speaking with pt's daughter I updated pt and she wanted placed in a wheelchair and asked to wait in lobby, pt states she doesn't need O2 all the time and wants to wait in lobby. Pt's O2 sats are 93 on RA at this time. I will continue to check on pt in lobby
--- NOTE | 2020-03-04 22:25 | PC.NURSE ---
I checked on pt in lobby, she is doing good and has no c/o, she continues to want to wait in lobby
== END 2020-03-04 21:09 | disposition home or self-care (01) ==
PROVIDERS: Emergency Provider Family Medicine; PCP Internal Medicine Adolescent Medicine
DX: J44.0 Chronic obstructive pulmonary disease with (acute) lower respiratory infection (principal); I48.20 Chronic atrial fibrillation, unspecified; I10 Essential (primary) hypertension; Z79.899 Other long term (current) drug therapy
CPT/HCPCS: 71045; 80053; 83880; 84484; 85025; 93005; 96365; 99283

== ENCOUNTER → 2020-04-23 13:25 | Outpatient (POV) | payer MEDICARE, SELFPAY ==
[2020-04-23 13:53] VITALS: BP 133/78; PULSE 71; RESP 18; O2SAT 92; BMI 35.0
--- NOTE | 2020-04-23 14:15 | HMH.PMCON ---
Assessment and Plan (1) Degenerative joint disease (DJD) of lumbar spine Status: Chronic Category: Medical Code(s): M47.816 - Spondylosis without myelopathy or radiculopathy, lumbar region (2) Lumbar radiculopathy Status: Chronic Category: Medical Code(s): M54.16 - Radiculopathy, lumbar region - Assessment and plan all Dx Assessment and Plan for all problems:: We will schedule the patient for an L4-L5 lumbar epidural steroid injection. Given her symptomology I do believe that this would benefit her. She is had these in the past with good relief of her similar symptomology. Patient is on Eliquis we will confirm with her prescribing physician that she can come off prior to any injective therapy. We will also continue her methocarbamol 750 mg 1 p.o. 3 times daily. I did discuss we would not be writing any narcotic medications. Patient understands. Patient's been instructed to call the office if she has any issues prior to her next appointment. Dr. Osullivan has reviewed this note and agrees with this plan of care. This note was dictated using voice recognition software and may contain errors or omissions HPI - Data of Consult Consult date: 04/23/20 Requesting Physician: Herminia Cameron APRN Primary Care Provider: Nurys Dawson APRN - Consult Narrative Reason for consult: Back pain, leg pain History of present illness: Ms. Pascal is a 74 year old female who presents today for consultation in regards to her low back and leg pain. She is recently moved to [place] from [place]. She was being seen by Dr. Delacruz in [place]. Patient was receiving epidural injections along with facet joint injections and radiofrequency ablations. Patient states that they were extremely beneficial for her. She is also receiving hydrocodone and methocarbamol. Patient states most of her pain is in her low back and into her right hip. Patient states that she gets up to 80% relief with her epidural injection she would like to move forward with this. She is tried and failed other modalities of treatment including medications, anti-inflammatories, physical therapy. She rates her pain today a 5 out of 10 CC: Herminia Cameron APRN [facility] History I have reviewed the patient's past medical history: Yes Medical History: Reports:: Atrial Fibrillation, Congestive Heart Failure, Chronic Obstructive Pulmonary Disease (COPD), Hyperlipidemia, Hypertension Denies:: Cancer, Diabetes Mellitus Type 1, Diabetes Mellitus Type 2, MRSA *Have you ever received a pneumonia vaccine?: Yes *Have you received a flu vaccine this season?: Yes Other Medical History: Reports: Arthritis, Fibromyalgia Laterality Cases: Left: Arthroscopy Shoulder Other Surgeries: Yes: Appendectomy, Colonoscopy, Hysterectomy-Total Amputation: No Fractures: No - *Social History Smoking Status: Never smoker Alcohol Intake: never Alcohol Intake Frequency:: holidays/special occasions only *Occupational Status:: retired Housing: house Household Members: spouse *Travel in the last 8 weeks: None Family Hx:: Unable to obtain Review of Systems - Review of Systems ROS General: no recent weight change, no fever, no sleep disturbances Respiratory: no cough, no shortness of air, no recurring pulmonary infections Cardiovascular/Peripheral Vascular: No chest pain, No palpitations, no edema, no shortness of breath. Gastrointestinal: no new onset incontinence, normal bowel movements reported Genitourinary: no new onset incontinence Musculoskeletal: Back pain, right hip pain Psychiatric: normal mood/ affect Neurological: [denies new onset weakness in extremities], [denies new onset balance issues] Meds Home Medications Medication Instructions Recorded Confirmed Type ARIPiprazole [Abilify] 5 mg PO DAILY 02/29/20 03/04/20 History Apixaban [Eliquis 5mg Tablet] 5 mg PO BID 02/29/20 03/04/20 History Aspirin [Adult Aspirin Regimen] 81 mg PO DAILY 02/29/20 03/04/20 History
== END ==
PROVIDERS: PCP Nurse Practitioner Family; Visit Provider Clinical Nurse Specialist Family Health
DX: M47.896 Other spondylosis, lumbar region (principal); M54.16 Radiculopathy, lumbar region
CPT/HCPCS: 99202; G0463

== ENCOUNTER 2020-05-08 09:16 | Day surgery (SDC) | payer MEDICARE, SELFPAY ==
[2020-05-08 09:23] VITALS: BP 159/77; PULSE 78; RESP 22; TEMP 35.9; O2SAT 92; BMI 36.1
[2020-05-08 10:07] VITALS: BP 133/74; PULSE 85; RESP 18; O2SAT 95
[2020-05-08 10:09] VITALS: BP 123/79; PULSE 79; RESP 18; O2SAT 95
[2020-05-08 10:30] VITALS: BP 161/96; PULSE 63; RESP 20; O2SAT 95
--- NOTE | 2020-05-08 11:24 | HMH.PMPROC ---
- Procedure Date: 05/08/20 Time: 11:24 Anesthesiologist:: Michele Osullivan MD Complications:: None Pre-procedure Diagnosis:: Degenerative disc disease of lumbar spine with lumbar radiculopathy symptoms Post-procedure Diagnosis:: Same Indications for Procedure:: Patient is a pleasant 74-year-old white female who we are treating for low back pain with lumbar radiculopathy symptoms. She has had injections previously at her pain physician in [place]. These did help significantly. She has been off her Eliquis for 5 days. She presents for repeat lumbar epidural steroid injection under fluoroscopy today. She is also doing well on her Robaxin 750 mg 3 times a day. Procedure Details:: Lumbar epidural steroid injection under fluoroscopy Informed consent was obtained and the risk and benefits of the procedure was explained to the patient. The patient was taken to the procedure room. The patient was placed prone on the procedure table. The patient was prepped and draped in sterile fashion. C-arm fluoroscopy was used to view the lumbar spine. Skin and subcutaneous tissues were anesthetized using lidocaine. I placed an 18-gauge epidural needle and advanced into the L4-L5 interspace using fluoroscopic guidance and [id number] to air. After confirmation of needle placement in the epidural space with dye I injected 2 mL of lidocaine 1.5% with Depo-Medrol 80 mg. Patient tolerated the procedure well with no complications. Plan and Disposition:: She can restart her Eliquis tomorrow. We will follow-up with her in 2 weeks. Will reevaluate her symptoms at that time.
== END 2020-05-08 10:30 | disposition home or self-care (01) ==
LOC: SC.PAINP 09:18
PROVIDERS: PCP Internal Medicine Adolescent Medicine; Visit Provider Anesthesiology
DX: M51.16 Intervertebral disc disorders with radiculopathy, lumbar region (principal); Z79.01 Long term (current) use of anticoagulants; Z79.899 Other long term (current) drug therapy; I10 Essential (primary) hypertension; I25.10 Atherosclerotic heart disease of native coronary artery without angina pectoris; E78.5 Hyperlipidemia, unspecified; K21.9 Gastro-esophageal reflux disease without esophagitis; I48.91 Unspecified atrial fibrillation; F41.9 Anxiety disorder, unspecified; F32.9 Major depressive disorder, single episode, unspecified; Z86.73 Personal history of transient ischemic attack (TIA), and cerebral infarction without residual deficits
CPT/HCPCS: 62323; J1040; Q9966

== ENCOUNTER → 2020-06-11 09:40 | Outpatient (POV) | payer MEDICARE, SELFPAY ==
[2020-06-11 11:27] VITALS: BP 132/88; PULSE 87; RESP 18; TEMP 36.8; O2SAT 98; BMI 35.0
--- NOTE | 2020-06-11 13:08 | HMH.PAINSOAP ---
[facility] Pain Management SOAP Note Subjective:: Patient is a pleasant 74-year-old white female who presents today for follow-up after a lumbar epidural steroid injection at L4-L5. She has been treated for pain secondary to degenerative disc disease lumbar spine with lumbar radiculopathy symptoms. Patient rates she pain a 5 out of 10 today. He says he got about 60 to 70% relief for up to 2 weeks with she initial lumbar epidural steroid injection. She was much more functional at that time. Unfortunately, her pain has returned. The patient is on Eliquis. She has been approved in the past to hold her Eliquis for injective therapy. She would like to proceed with the second injection. Review of Systems General: No recent weight changes, no fever, no sleep disturbances Respiratory: No cough, no shortness of air, no recurring pulmonary infections Cardiovascular/peripheral vascular: No chest pain, no palpitations, no edema, no shortness of breath Gastrointestinal: No new onset incontinence, normal bowel movements reported Genitourinary: No new onset incontinence Musculoskeletal: Low back pain Psychiatric: Normal mood/affect Neurological: [Denies weakness in extremities], [denies balance issues] Objective:: Physical exam General: Alert and oriented x3, no acute distress, pleasant and cooperative, [on room air] Lungs: Respirations even and unlabored, symmetrical chest expansion Eyes: PERRL Musculoskeletal: Flexion and extension of lumbar spine somewhat guarded secondary to pain, deep tendon reflexes normal, strength in upper and lower extremities [5/5], [abnormal gait noted] Neurological: Speech clear, suction roller equal, no gross sensory deficit Assessment:: Degenerative disc disease lumbar spine with lumbar radiculopathy symptoms Plan:: We will schedule the patient for a second lumbar epidural steroid injection at L4-L5. She is on Eliquis. She does understand she will need to hold this prior to the injection. Risks and benefits of the procedure have been explained to the patient. Patient would like to proceed with the procedure. We will see the patient back in the clinic after her injection to reassess her symptoms. The patient and I specifically discussed risk factors for COVID19. These risks include, but are not limited to age greater than 60, heart or lung disease, diabetes, immunosuppression, and travel. We also discussed NSAIDs may worsen COVID19 infection or symptoms. Patient should not use NSAIDs to treat COVID19 signs or symptoms. Patient was also informed that any type of corticosteroid of any form (oral or injection) will decrease the patient's immune system response and may increase the likelihood of COVID19 infection [address] symptoms[address]. Osullivan has reviewed this note and agrees with this plan of care. This note was dictated using voice recognition software and make contain errors or omissions. [facility] History I have reviewed the patient's past medical history: Yes Medical History: Reports:: Atrial Fibrillation, Congestive Heart Failure, Chronic Obstructive Pulmonary Disease (COPD), Hyperlipidemia, Hypertension Denies:: Cancer, Diabetes Mellitus Type 1, Diabetes Mellitus Type 2, MRSA, Seizures *Have you ever received a pneumonia vaccine?: Yes *Have you received a flu vaccine this season?: Yes Other Medical History: Reports: Arthritis, Fibromyalgia. Denies: Blood Transfusion Reaction Laterality Cases: Left: Arthroscopy Shoulder Other Surgeries: Yes: Appendectomy, Cholecystectomy, Colonoscopy, Hysterectomy-Total Amputation: No Fractures: No - *Social History Smoking Status: Never smoker Alcohol Intake: never Alcohol Intake Frequency:: holidays/special occasions only *Occupational Status:: other Housing: house Household Members: significant other *Travel in the last 8 weeks: None Family Hx:: Unable to obtain
== END ==
PROVIDERS: PCP Internal Medicine Adolescent Medicine; Visit Provider Clinical Nurse Specialist Family Health
DX: M51.16 Intervertebral disc disorders with radiculopathy, lumbar region (principal)
CPT/HCPCS: 99212; G0463

== ENCOUNTER 2020-06-19 09:57 | Day surgery (SDC) | payer MEDICARE, SELFPAY ==
[2020-06-19 10:23] VITALS: BP 146/67; BP 151/77; PULSE 64; PULSE 72; RESP 18; RESP 20; TEMP 36.5; TEMP 37; O2SAT 98; BMI 35.0
--- NOTE | 2020-06-19 11:28 | HMH.PMPROC ---
- Procedure Date: 06/19/20 Time: 11:28 Anesthesiologist:: Michele Osullivan MD Complications:: None Pre-procedure Diagnosis:: Degenerative disc disease of lumbar spine with lumbar radiculopathy symptoms Post-procedure Diagnosis:: Same Indications for Procedure:: This patient is a pleasant 74-year-old white female who we are treating for low back pain with lumbar radiculopathy symptoms. She has increasing pain in her low back radiating down both legs. She did very well with her last lumbar epidural steroid injection she was 70% better for several weeks. Her pain is now starting to come back. We'll do a repeat lumbar pleural steroid injection under fluoroscopy today. Off her Eliquis for 4 days. Procedure Details:: Lumbar epidural steroid injection under fluoroscopy Informed consent was obtained and the risk and benefits of the procedure was explained to the patient. The patient was taken to the procedure room. The patient was placed prone on the procedure table. The patient was prepped and draped in sterile fashion. C-arm fluoroscopy was used to view the lumbar spine. Skin and subcutaneous tissues were anesthetized using lidocaine. I placed an 18-gauge epidural needle and advanced into the L4-L5 interspace using fluoroscopic guidance and [id number] to air. After confirmation of needle placement in the epidural space with dye I injected 2 mL of lidocaine 1.5% with Depo-Medrol 80 mg. Patient tolerated the procedure well with no complications. Plan and Disposition:: We'll follow-up with her in 2 weeks. Will reevaluate symptoms at that time. She can resume her Eliquis tomorrow.
[2020-06-19 11:33] VITALS: BP 142/74; PULSE 74; PULSE 85; RESP 18; O2SAT 98
== END 2020-06-19 11:40 | disposition home or self-care (01) ==
LOC: SC.PAINP 09:57
PROVIDERS: PCP Internal Medicine Adolescent Medicine; Visit Provider Anesthesiology
DX: M51.16 Intervertebral disc disorders with radiculopathy, lumbar region (principal); I48.91 Unspecified atrial fibrillation; I11.0 Hypertensive heart disease with heart failure; I50.9 Heart failure, unspecified; J44.9 Chronic obstructive pulmonary disease, unspecified; E78.5 Hyperlipidemia, unspecified; M79.7 Fibromyalgia; I25.10 Atherosclerotic heart disease of native coronary artery without angina pectoris; Z99.81 Dependence on supplemental oxygen; F41.9 Anxiety disorder, unspecified; G43.909 Migraine, unspecified, not intractable, without status migrainosus; Z86.73 Personal history of transient ischemic attack (TIA), and cerebral infarction without residual deficits
CPT/HCPCS: 62323; J1040; Q9966

== ENCOUNTER → 2020-07-09 10:22 | Outpatient (POV) | payer MEDICARE, SELFPAY ==
[2020-07-09 10:31] VITALS: BP 149/75; PULSE 66; RESP 20; O2SAT 96; BMI 34.4
--- NOTE | 2020-07-09 10:59 | HMH.PAINSOAP ---
[facility] Pain Management SOAP Note Subjective:: Patient is a pleasant 74-year-old white female who we are treating for low back pain with lumbar radiculopathy. Patient rates her pain a 6 out of 10. Patient had her second epidural steroid injection which she got 80% relief for her. She would like to repeat her injection for her third epidural in the series. Patient is on Eliquis however she does have permission to come off prior to injective therapy. ROS General: no recent weight change, no fever, no sleep disturbances Respiratory: no cough, no shortness of air, no recurring pulmonary infections Cardiovascular/Peripheral Vascular: No chest pain, No palpitations, no edema, no shortness of breath. Gastrointestinal: no new onset incontinence, normal bowel movements reported Genitourinary: no new onset incontinence Musculoskeletal: Back pain, leg pain Psychiatric: normal mood/ affect Neurological: [denies new onset weakness in extremities], [denies new onset balance issues] Objective:: Physical Exam General: Alert and oriented x3, no acute distress, pleasant and cooperative, on home O2 Lungs: Resps E/U, Symmetrical chest expansion, Eyes: PERRL Musculoskeletal: Flexion and extension of lumbar spine somewhat guarded secondary to pain, deep tendon reflexes normal, strength in upper and lower extremities [5/5], [abnormal gait noted] Neurological: speech clear, 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 Given the efficacy of this in the past I do believe it would benefit her to complete the series of epidurals. I will follow-up with her afterwards reassess her symptoms at that time she has been instructed to call the office if she has any issues prior to her next appointment. She has permission to come off of Eliquis prior to injection therapy. Dr. Osullivan has reviewed this note and agrees with this plan of care. This note was dictated using voice recognition software and may contain errors or omissions [facility] History I have reviewed the patient's past medical history: Yes Medical History: Reports:: Atrial Fibrillation, Congestive Heart Failure, Chronic Obstructive Pulmonary Disease (COPD), Coronary Artery Disease, Hyperlipidemia, Hypertension Denies:: Cancer, Diabetes Mellitus Type 1, Diabetes Mellitus Type 2, MRSA, Seizures *Have you ever received a pneumonia vaccine?: Yes *Have you received a flu vaccine this season?: Yes Other Medical History: Reports: Arthritis, Fibromyalgia. Denies: Blood Transfusion Reaction Laterality Cases: Left: Arthroscopy Shoulder Other Surgeries: Yes: Appendectomy, Cholecystectomy, Colonoscopy, Hysterectomy-Total Amputation: No Fractures: No - *Social History Smoking Status: Never smoker Alcohol Intake: never Alcohol Intake Frequency:: holidays/special occasions only *Occupational Status:: retired Housing: house Household Members: significant other *Travel in the last 8 weeks: None Family Hx:: Unable to obtain
== END ==
PROVIDERS: PCP Internal Medicine Adolescent Medicine; Visit Provider Clinical Nurse Specialist Family Health
DX: M51.16 Intervertebral disc disorders with radiculopathy, lumbar region (principal)
CPT/HCPCS: 99212; G0463

== ENCOUNTER 2020-07-17 10:25 | Day surgery (SDC) | payer MEDICARE, SELFPAY ==
[2020-07-17 11:19] VITALS: BP 113/59; PULSE 64; RESP 20; TEMP 35.8; O2SAT 100; BMI 34.4
[2020-07-17 12:02] VITALS: BP 138/89; PULSE 89; RESP 18; O2SAT 98
[2020-07-17 12:05] VITALS: BP 140/79; PULSE 89; RESP 18; O2SAT 98
--- NOTE | 2020-07-17 12:09 | HMH.PMPROC ---
- Procedure Date: 07/17/20 Time: 12:09 Anesthesiologist:: Michele Osullivan MD Complications:: None Pre-procedure Diagnosis:: Degenerative disc disease of lumbar spine with lumbar radiculopathy symptoms Post-procedure Diagnosis:: Same Indications for Procedure:: This patient is a pleasant 74-year-old white female who we are treating for low back pain with lumbar radiculopathy symptoms. She is done very well with these injections in the past. She was 80% better for several weeks. Pain is now starting to return. She has been off of her Eliquis for 5 days. She presents for repeat lumbar epidural steroid injection again today. Procedure Details:: Lumbar epidural steroid injection under fluoroscopy informed consent was obtained and the risk and benefits of the procedure was explained to the patient. The patient was taken to the procedure room. The patient was placed prone on the procedure table. The patient was prepped and draped in sterile fashion. C-arm fluoroscopy was used to view the lumbar spine. Skin and subcutaneous tissues were anesthetized using lidocaine. I placed an 18-gauge epidural needle and advanced into the L4-L5 interspace using fluoroscopic guidance and [id number] to air. After confirmation of needle placement in the epidural space with dye I injected 2 mL of lidocaine 1.5% with Depo-Medrol 80 mg. Patient tolerated the procedure well with no complications. Plan and Disposition:: We will follow-up with her in 2 weeks. Will reevaluate symptoms at that time.
[2020-07-17 12:25] VITALS: BP 132/76; PULSE 63; RESP 20; O2SAT 100
== END 2020-07-17 12:25 | disposition home or self-care (01) ==
LOC: SC.PAINP 10:26
PROVIDERS: PCP Internal Medicine Adolescent Medicine; Visit Provider Anesthesiology
DX: M51.16 Intervertebral disc disorders with radiculopathy, lumbar region (principal); I10 Essential (primary) hypertension; E78.5 Hyperlipidemia, unspecified; F41.9 Anxiety disorder, unspecified; F32.9 Major depressive disorder, single episode, unspecified; I48.91 Unspecified atrial fibrillation
CPT/HCPCS: 62323; J1040; Q9966

== ENCOUNTER → 2020-08-20 09:11 | Outpatient (POV) | payer MEDICARE, SELFPAY ==
[2020-08-20 09:32] VITALS: BP 122/74; PULSE 65; RESP 18; O2SAT 98; BMI 34.4
--- NOTE | 2020-08-20 09:40 | P.CONS_ITS ---
[facility] Pain Management SOAP Note Subjective:: Patient is a 74-year-old white female who are treating for low back pain with lumbar radiculopathy she is finished her third epidural steroid injection overall she is doing well she has an increase in her pain today due to a restless night sleeping and learning about her new CPAP machine. Patient has gotten 80% relief with her injections. Overall doing well. ROS General: no recent weight change, no fever, no sleep disturbances Respiratory: no cough, no shortness of air, no recurring pulmonary infections Cardiovascular/Peripheral Vascular: No chest pain, No palpitations, no edema, no shortness of breath. Gastrointestinal: no new onset incontinence, normal bowel movements reported Genitourinary: no new onset incontinence Musculoskeletal: Back pain, leg pain Psychiatric: normal mood/ affect Neurological: [denies new onset weakness in extremities], [denies new onset balance issues] Objective:: Physical Exam General: Alert and oriented x3, no acute distress, pleasant and cooperative, on O2 Lungs: Resps E/U, Symmetrical chest expansion, Eyes: PERRL Musculoskeletal: Flexion and extension of lumbar spine somewhat guarded secondary to pain, deep tendon reflexes normal, strength in upper and lower extremities [5/5], [abnormal gait noted] Neurological: speech clear, 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 Dr. Osullivan has reviewed this note and agrees with this plan of care. This note was dictated using voice recognition software and may contain errors or omissions [facility] History I have reviewed the patient's past medical history: Yes Medical History: Reports:: Atrial Fibrillation, Congestive Heart Failure, Chronic Obstructive Pulmonary Disease (COPD), Coronary Artery Disease, Hyperlipidemia, Hypertension Denies:: Cancer, Diabetes Mellitus Type 1, Diabetes Mellitus Type 2, MRSA, Seizures *Have you ever received a pneumonia vaccine?: Yes *Have you received a flu vaccine this season?: Yes Other Medical History: Reports: Arthritis, Fibromyalgia. Denies: Blood Transfusion Reaction Laterality Cases: Left: Arthroscopy Shoulder Other Surgeries: Yes: Appendectomy, Cholecystectomy, Colonoscopy, Hysterectomy- Total Amputation: No Fractures: No - *Social History Smoking Status: Never smoker Alcohol Intake: never Alcohol Intake Frequency:: holidays/special occasions only *Occupational Status:: other Housing: house Household Members: significant other *Travel in the last 8 weeks: None Family Hx:: Unable to obtain
== END ==
PROVIDERS: PCP Internal Medicine Adolescent Medicine; Visit Provider Clinical Nurse Specialist Family Health
DX: M51.16 Intervertebral disc disorders with radiculopathy, lumbar region (principal)
CPT/HCPCS: 99212; G0463

== ENCOUNTER → 2020-09-15 16:14 | Outpatient (CLI) | payer MEDICARE, SELFPAY ==
[2020-09-15 16:42] LABS: Basophils # 0.1 K/mm3 (0-0.2); Basophils % 0.9 % (0.1-2.0); Eosinophils # 0.3 K/mm3 (0.0-0.4); Eosinophils % 3.4 % (0.1-12.0); Hematocrit 38.8 % (37.0-47.0); Hemoglobin 12.1 g/dL (12.2-16.2); Lymphocytes # 2.3 K/mm3 (0.7-4.5); Lymphocytes % 28.5 % (10-50); Mean Corpuscular HGB Conc 31.2 g/dL (31.8-35.4); Mean Corpuscular Hemoglobin 27.5 pg (27.0-31.2); Mean Platelet Volume 8.4 fl (7.4-10.4); Monocytes # 0.5 K/mm3 (0.1-1.0); Monocytes % 5.8 % (1.7-9.3); Neutrophils # 4.9 K/mm3 (1.8-7.8); Neutrophils % 61.4 % (37.0-80.0); Platelet Count 270 K/mm3 (142-424); Red Blood Count 4.41 M/mm3 (4.20-5.40); Red Cell Distribution Width 14.7 % (11.5-17.5)
[2020-09-15 19:28] LABS: Alanine Aminotransferase 12 U/L (12-78); Albumin Level 3.9 g/dl (3.5-5.0); Albumin/Globulin Ratio 1.3 (1.1-1.8); Alkaline Phosphatase 91 U/L (38-126); Anion Gap 9.5 mEq/L (5-15); Aspartate Amino Transferase 22 U/L (14-36); Bilirubin,Total 0.5 mg/dl (0.2-1.3); Blood Urea Nitrogen 8 mg/dl (7-17); Calcium 8.9 mg/dl (8.4-10.2); Carbon Dioxide 33 mmol/L (22.0-30.0); Chloride 98 mmol/L (98-107); Chol/HDL Ratio 2.3 (1-3.5); Cholesterol 143 mg/dl (140-200); Estimated Glomerular Filt Rate 98 ml/min (>60); GFR (African American) 118 ML/MIN (>60); Globulin 2.9 g/dL (1.3-3.2); Glucose 100 mg/dl (74-100); HDL Cholesterol 62 mg/dl (40-60); Potassium 4.5 mmoL/L (3.5-5.1); Sodium 136 mmol/L (136-145); Total Protein,Serum 6.8 g/dl (6.3-8.2); Triglycerides 89 mg/dl (30-150); VLDL Cholesterol 18 mg/dL (0-40)
[2020-09-15 19:39] LABS: Direct LDL Cholesterol 55.14 mg/dL (100-129)
== END ==
PROVIDERS: Visit Provider Internal Medicine Adolescent Medicine
DX: I50.32 Chronic diastolic (congestive) heart failure (principal)
CPT/HCPCS: 36415; 80053; 80061; 85025

== ENCOUNTER → 2020-09-30 12:45 | Outpatient (CLI) | payer MEDICARE, SELFPAY ==
--- NOTE | 2020-09-30 14:33 | CT_ITS ---
PROCEDURE: CT CHEST WO CON CLINICAL INDICATION: lung evaluation COMPARISON: CR XR CHEST PORTABLE from 03/04/2020 TECHNIQUE: Axial images obtained with sagittal and coronal reformats. All CT scans at the facility use one or more dose reduction, viz: automated exposure control, ma/kV adjustment per patient size (including targeted exams where dose is matched to indication, i.e. head), or iterative reconstruction technique. FINDINGS: Scattered mild emphysematous changes with mild bibasilar scar versus atelectasis. No discrete pulmonary nodules noted. Mild calcification of thoracic aorta without dissection or aneurysm. Airways are patent. Heart is not enlarged. No pericardial effusion or thickening. No enlarged hilar mediastinal or axillary lymph nodes. Great vessels off the aortic arch are normal. Some coronary artery calcification noted. Images of the upper abdomen show no focal abnormality. No adrenal mass. Gallbladder is surgically absent. Some diffuse degenerative changes of thoracic spine are present. No acute bony abnormality. IMPRESSION: No discrete pulmonary nodules noted. Scattered mild emphysematous changes with mild bibasilar scar versus atelectasis. Prior cholecystectomy. Mild calcification of the thoracic aorta without aneurysm. Dictated by: Deandre Morelos MD 09/30/2020 16:00 Deandre Morelos MD in [place] 09/30/2020 16:00
== END ==
PROVIDERS: PCP Internal Medicine Adolescent Medicine; Visit Provider Internal Medicine Pulmonary Disease
DX: Z87.891 Personal history of nicotine dependence (principal); R06.09 Other forms of dyspnea
CPT/HCPCS: 71250; 94060; 94726; 94729

== ENCOUNTER → 2020-10-12 08:35 | Outpatient (POV) | payer MEDICARE, SELFPAY ==
[2020-10-12 08:58] VITALS: BP 142/74; PULSE 58; RESP 18; O2SAT 99; BMI 34.4
--- NOTE | 2020-10-12 09:12 | HMH.PAINSOAP ---
[facility] Pain Management SOAP Note Subjective:: Patient is a pleasant 74-year-old white female who presents today for low back pain. She says that her pain is radiating into her bilateral hips causing her to have numbness and tingling into her lower extremities. Pain is also radiating into her buttock and bilateral groin areas. She has had epidural steroid injections in the past and has gotten excellent relief. She is having severe weakness in her lower extremities. She denies any pain when leaning forward. She says standing and walking is causing her to have worsening pain. She is tender to palpation to bilateral SI joints today. She rates her pain an 8 out of 10. Review of Systems General: No recent weight changes, no fever, no sleep disturbances Respiratory: No cough, no shortness of air, no recurring pulmonary infections Cardiovascular/peripheral vascular: No chest pain, no palpitations, no edema, no shortness of breath Gastrointestinal: No new onset incontinence, normal bowel movements reported Genitourinary: No new onset incontinence Musculoskeletal: Bilateral hip and buttock pain, bilateral lower extremity pain with weakness Psychiatric: Normal mood/affect Neurological: Weakness in lower extremities Objective:: Physical exam General: Alert and oriented x3, no acute distress, pleasant and cooperative, [on room air] Lungs: Respirations even and unlabored, symmetrical chest expansion Eyes: PERRL Musculoskeletal: Flexion and extension of [] lumbar spine somewhat guarded secondary to pain, deep tendon reflexes normal, strength in upper and lower extremities [4/5], [abnormal gait noted], positive John's test, positive distraction test, positive compression test Neurological: Speech clear, rn allergy equal, no gross sensory deficit Assessment:: Sacroiliitis, degenerative disc disease lumbar spine Plan:: We will schedule patient for bilateral SI joint injections. She has had epidural steroid injections in the past and has gotten excellent relief, however, she feels her pain is somewhat different at this time. She is tender to palpation to bilateral SI joints. She is continue with home stretching and with anti-inflammatories. We will see her back after her injections to reevaluate her symptoms. Risks and benefits of the procedure have been explained to the patient. Patient would like to proceed with the procedure. Possible side effects of corticosteroids have been discussed with the patient. Patient has been instructed to contact the clinic with any concerns before the next appointment. Dr. Bux has reviewed this note and agrees with this plan of care. This note was dictated using voice recognition software and make contain errors or omissions. [facility] History I have reviewed the patient's past medical history: Yes Medical History: Reports:: Atrial Fibrillation, Congestive Heart Failure, Chronic Obstructive Pulmonary Disease (COPD), Coronary Artery Disease, Hyperlipidemia, Hypertension Denies:: Cancer, Diabetes Mellitus Type 1, Diabetes Mellitus Type 2, MRSA, Seizures *Have you ever received a pneumonia vaccine?: Yes *Have you received a flu vaccine this season?: Yes Other Medical History: Reports: Arthritis, Fibromyalgia. Denies: Blood Transfusion Reaction Laterality Cases: Left: Arthroscopy Shoulder Other Surgeries: Yes: Appendectomy, Cholecystectomy, Colonoscopy, Hysterectomy-Total Amputation: No Fractures: No - *Social History Smoking Status: Never smoker Alcohol Intake: never Alcohol Intake Frequency:: holidays/special occasions only *Occupational Status:: unemployed Housing: house Household Members: significant other *Travel in the last 8 weeks: None Family Hx:: Unable to obtain
== END ==
PROVIDERS: PCP Internal Medicine Adolescent Medicine; Visit Provider Clinical Nurse Specialist Family Health
DX: M46.1 Sacroiliitis, not elsewhere classified (principal); M51.36 Other intervertebral disc degeneration, lumbar region
CPT/HCPCS: 99212; G0463

== ENCOUNTER 2020-11-06 09:31 | Day surgery (SDC) | payer MEDICARE, SELFPAY ==
[2020-11-06 09:55] VITALS: BP 154/78; PULSE 58; RESP 18; TEMP 36.7; O2SAT 97; BMI 34.4
[2020-11-06 11:28] VITALS: BP 155/95; PULSE 61; RESP 18; O2SAT 97
[2020-11-06 11:29] VITALS: BP 125/80; PULSE 61; RESP 18; O2SAT 98
--- NOTE | 2020-11-06 11:41 | P.PCN_ITS ---
- Procedure Date: 11/06/20 Time: 11:41 Anesthesiologist:: Lindsey Yip MD Complications:: None Pre-procedure Diagnosis:: Bilateral sacroiliitis, chronic back pain, chronic bilateral hip pain Post-procedure Diagnosis:: Same Indications for Procedure:: Patient is a very pleasant 74-year-old white female who presents today with chronic low back pain and chronic lateral hip pain related to the above diagnosis. Tried and failed conservative treatment including oral pain medication and home stretching program for greater than 6 weeks. She states that the pain is in her hips and radiates into her groin region bilaterally and bilateral buttocks as well as causing her numbness and tingling. She also notes weakness in her lower extremities and states that standing and walking worsens her pain. Of note, she previously has undergone lumbar epidural steroid injections in the past with excellent relief, but states that this pain is slightly different from her original low back pain. She rates the pain as a 8 or 9 out of 10 today. The plan for today is for the patient to undergo bilateral SI joint injections under fluoroscopy #1. Procedure Details:: B/L SI joint injection under fluoroscopy Informed consent was obtained and the risks and benefits of the procedure was explained to the patient. The patient was taken to the procedure room and plac ed prone on the procedure table. The patient was prepped using ChloraPrep. The skin and subcutaneous tissues overlying the SI joints were anesthetized using lidocaine. I placed a 22-gauge needle and first in the left SI joint and second in the right SI joint. Needle placement was confirmed with 1 mL of contrast dye. After this we injected 5 mL bupivacaine 0.25% and Depo-Medrol 40 mg into each SI joint. Patient tolerated the procedure well with no complications. Plan and Disposition:: Follow-up with this patient in 2 weeks. Will reevaluate pain symptoms at that time.
[2020-11-06 11:45] VITALS: BP 159/76; PULSE 58; RESP 20; O2SAT 97
== END 2020-11-06 11:45 | disposition home or self-care (01) ==
PROVIDERS: PCP Internal Medicine Adolescent Medicine; Visit Provider Anesthesiology Pain Medicine
DX: M46.1 Sacroiliitis, not elsewhere classified (principal); M54.9 Dorsalgia, unspecified; M25.551 Pain in right hip; M25.552 Pain in left hip; G89.29 Other chronic pain; I11.0 Hypertensive heart disease with heart failure; E78.5 Hyperlipidemia, unspecified; I50.9 Heart failure, unspecified; I25.10 Atherosclerotic heart disease of native coronary artery without angina pectoris; I48.91 Unspecified atrial fibrillation; J44.9 Chronic obstructive pulmonary disease, unspecified; M19.90 Unspecified osteoarthritis, unspecified site
CPT/HCPCS: 27096; 76000; G0260; J1030; Q9966

== ENCOUNTER → 2020-12-08 12:51 | Outpatient (CLI) | payer MEDICARE, SELFPAY ==
--- NOTE | 2020-12-08 13:02 | XR_ITS ---
PROCEDURE: XR SHOULDER LT MIN 2V CLINICAL INDICATION: LT SHOULDER PAIN COMPARISON: CR XR CHEST PORTABLE from 03/04/2020 FINDINGS: Left humeral head prosthesis in place. No fracture or dislocation. 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 There is mild prominence of the AC joint which had a similar appearance on 03/04/2020. Other findings:None. IMPRESSION: No acute findings. Dictated by: Juice Shaw MD 12/08/2020 13:34 Juice Shaw MD in [place] 12/08/2020 13:36
== END ==
PROVIDERS: PCP Internal Medicine Adolescent Medicine; Visit Provider Internal Medicine Adolescent Medicine
DX: M25.512 Pain in left shoulder (principal)
CPT/HCPCS: 73030

== ENCOUNTER → 2021-01-04 11:57 | Outpatient (POV) | payer MEDICARE, SELFPAY ==
[2021-01-04 12:05] VITALS: BP 130/77; PULSE 56; RESP 18; O2SAT 95; BMI 35.6
--- NOTE | 2021-01-04 12:19 | HMH.PAINSOAP ---
[facility] Pain Management SOAP Note Subjective:: Patient is a 75-year-old white female who presents today for follow-up. She recently had an SI injection bilaterally. Patient says that she got significant relief, however, she is having worsening pain in her low back with radiation into lower extremities. She is having heaviness and weakness in her bilateral legs as well. She says that the pain radiates into her hips and legs causing her to feel as though her legs are going to give out . The patient says that she got approximately 2 weeks of relief in her low back and buttock with the SI injections, but the pain did return. The pain she is currently having is worse than the pain that she has in her low back and buttocks. Patient does report of having fell approximately 2 weeks ago. She says she has frequent falls due to heaviness and weakness in her legs. Patient also has chronic neck pain with radiation into her upper extremities. Patient is on Eliquis that is prescribed by Dr. Mo. She rates her pain a 5 out of 10 today. Patient does use continuous oxygen nasal cannula. She does have difficulty lying flat, and is concerned she will not be able to have an updated MRI due to this. Patient has had # 2 lumbar epidural steroid injections. She would like to repeat her third injection. She has tried and failed conservative therapies of physical therapy for more than 6 weeks and home stretching. She is unable to take anti-inflammatories due to anticoagulation therapy. She does use ice and heat therapies. Review of Systems General: No recent weight changes, no fever, no sleep disturbances Respiratory: No cough, no shortness of air, no recurring pulmonary infections Cardiovascular/peripheral vascular: No chest pain, no palpitations, no edema, no shortness of breath Gastrointestinal: No new onset incontinence, normal bowel movements reported Genitourinary: No new onset incontinence Musculoskeletal: Low back pain with radiation into right hip and bilateral legs with heaviness and weakness and numbness and tingling. 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 Due to her breathing, she does have difficulty laying flat for prolonged periods. We will hold off on an MRI and schedule the patient for her repeat lumbar epidural steroid injection at L4-L5 with an epidurogram. Patient is having heaviness and weakness in her lower extremities along with falls. She is having continued low back pain with radiation into her right hip and leg. She has tried failed conservative therapies of physical therapy for more than 6 weeks and continues with home stretching. She is used ice and heat therapies, and this will be her #3 lumbar epidural steroid injection at L4-L5 area. Patient has had the injections and has gotten up to a month of relief at about 70 to 80%. Today, the patient I did discuss possible mild procedure versus intrathecal therapy versus spinal cord stimulation. We discussed each procedure in great detail dependent up on her epidurogram results. Patient has been advised that Dr. Osullivan will discuss his recommendations following the next injection and epidurogram. The patient is on Eliquis that is prescribed by Dr. Mo. She does understand she will need to hold this
== END ==
PROVIDERS: Visit Provider Clinical Nurse Specialist Family Health
DX: M50.10 Cervical disc disorder with radiculopathy, unspecified cervical region (principal); M51.16 Intervertebral disc disorders with radiculopathy, lumbar region
CPT/HCPCS: 99212; G0463

== ENCOUNTER 2021-01-15 09:48 | Day surgery (SDC) | payer MEDICARE, SELFPAY ==
[2021-01-15 09:59] VITALS: BP 151/77; PULSE 79; RESP 18; TEMP 36.6; O2SAT 97; BMI 34.1
[2021-01-15 10:19] VITALS: BP 151/78; PULSE 80; RESP 18; O2SAT 96
[2021-01-15 10:20] VITALS: BP 148/83; PULSE 80; RESP 18; O2SAT 96
--- NOTE | 2021-01-15 10:40 | HMH.PMPROC ---
- Procedure Date: 01/15/21 Time: 10:40 Anesthesiologist:: Michele Osullivan MD Complications:: None Pre-procedure Diagnosis:: Degenerative disc disease of lumbar spine with lumbar radiculopathy symptoms Post-procedure Diagnosis:: Same Indications for Procedure:: Patient is pleasant 75-year-old white female who we are treating for low back pain with lumbar radiculopathy symptoms. She has had SI joint injections and previous epidural steroid injections. She does get benefit from these injections however they did not last very long. She has failed all previous conservative therapy she is not a surgical candidate. We will do repeat lumbar epidural steroid injection today to see if this gives her relief of her pain symptoms. Procedure Details:: Informed consent was obtained and the risk and benefits of the procedure was explained to the patient. The patient was taken to the procedure room. The patient was placed prone on the procedure table. The patient was prepped and draped in sterile fashion. C-arm fluoroscopy was used to view the lumbar spine. Skin and subcutaneous tissues were anesthetized using lidocaine. I placed an 18-gauge epidural needle and advanced into the L4-L5 interspace using fluoroscopic guidance and [id number] to air. After confirmation of needle placement in the epidural space with dye I injected 2 mL of lidocaine 1.5% with Depo-Medrol 80 mg. Patient tolerated the procedure well with no complications. Plan and Disposition:: We will follow-up with this patient in 2 weeks. Will reevaluate her symptoms at that time. Given the fact that she does not get long-term relief from these injections and she has failed all previous conservative therapy and is not a surgical candidate I do believe she may be a good candidate for intrathecal therapy. She is not on any oral narcotics I do believe she may be a good candidate for intrathecal pain pump trial. We will plan on fentanyl 25 mcg to help with her low back pain and leg pain.
[2021-01-15 10:43] VITALS: BP 145/85; PULSE 73; RESP 20; O2SAT 98
== END 2021-01-15 10:44 | disposition home or self-care (01) ==
LOC: SC.PAINP 09:49
PROVIDERS: PCP Internal Medicine Adolescent Medicine; Visit Provider Anesthesiology
DX: M51.16 Intervertebral disc disorders with radiculopathy, lumbar region (principal); I50.9 Heart failure, unspecified; E78.5 Hyperlipidemia, unspecified; I11.0 Hypertensive heart disease with heart failure; I48.91 Unspecified atrial fibrillation; J44.9 Chronic obstructive pulmonary disease, unspecified; M19.90 Unspecified osteoarthritis, unspecified site; M79.7 Fibromyalgia; Z87.891 Personal history of nicotine dependence; F32.9 Major depressive disorder, single episode, unspecified; Z79.01 Long term (current) use of anticoagulants; Z79.899 Other long term (current) drug therapy
CPT/HCPCS: 62323; J1040; Q9966

== ENCOUNTER → 2021-01-20 13:03 | Outpatient (CLI) | payer MEDICARE, SELFPAY | LOC: SL 13:06 → RT 13:09 | PROVIDERS: PCP Internal Medicine Adolescent Medicine; Visit Provider Internal Medicine Adolescent Medicine | DX: G47.33 Obstructive sleep apnea (adult) (pediatric) (principal); J96.11 Chronic respiratory failure with hypoxia; Z99.81 Dependence on supplemental oxygen | CPT/HCPCS: 94762 ==

== ENCOUNTER → 2021-02-04 14:13 | Outpatient (POV) | payer MEDICARE, SELFPAY ==
[2021-02-04 14:27] VITALS: BP 106/67; PULSE 56; RESP 18; O2SAT 96; BMI 33.5
--- NOTE | 2021-02-04 14:49 | HMH.PAINSOAP ---
[facility] Pain Management SOAP Note Subjective:: Patient is a very pleasant 75-year-old white female who presents today for follow-up after lumbar epidural steroid injection. Patient reports that she got great relief with the injection. This was the patient's third injection. She does rate her pain a 6 out of 10. She has pain in her low back with radiation into her bilateral lower extremities. At last visit, the doctor did discuss possible intrathecal therapy with the patient. She is interested in proceeding. Patient has tried and failed conservative therapies of physical therapy for more than 6 weeks along with continued home stretching. She is unable to take anti-inflammatories due to anticoagulation therapy?Eliquis. Patient's Eliquis is prescribed by Dr. Mo. She is also tried ice and heat therapies. Injective therapy gives her relief but only short-term. She is not a neurosurgical candidate. Review of Systems General: No recent weight changes, no fever, no sleep disturbances Respiratory: No cough, no shortness of air, no recurring pulmonary infections Cardiovascular/peripheral vascular: No chest pain, no palpitations, no edema, no shortness of breath Gastrointestinal: No new onset incontinence, normal bowel movements reported Genitourinary: No new onset incontinence Musculoskeletal: Low back pain with radiation into bilateral lower extremities Psychiatric: [Normal mood/affect] Neurological: [Denies weakness in extremities], [denies balance issues] Objective:: Physical exam General: Alert and oriented x3, no acute distress, pleasant and cooperative Lungs: Respirations even and unlabored, symmetrical chest expansion Eyes: PERRL Musculoskeletal: Flexion and extension of lumbar [spine] somewhat guarded secondary to pain, [antalgic gait noted] Neurological: Speech clear, no gross sensory deficit Assessment:: Degenerative disc disease lumbar spine with lumbar radiculopathy symptoms Plan:: Patient has tried and failed all conservative therapies and is not considered a neurosurgical candidate. Dr. Osullivan did discuss possible intrathecal therapy with the patient. She is interested in proceeding. We will schedule the patient for psychological evaluation and see her back in the clinic afterwards to discuss a further plan of care. Patient is on Eliquis prescribed by Dr. Mo. Patient is not diabetic. Patient has been instructed to contact the clinic with any concerns before the next appointment. Dr. Osullivan has reviewed this note and agrees with this plan of care. This note was dictated using voice recognition software and make contain errors or omissions. [facility] History I have reviewed the patient's past medical history: Yes Medical History: Reports:: Atrial Fibrillation, Congestive Heart Failure, Chronic Obstructive Pulmonary Disease (COPD), Coronary Artery Disease, Hyperlipidemia, Hypertension, Seizures Denies:: Cancer, Diabetes Mellitus Type 1, Diabetes Mellitus Type 2, MRSA *Have you ever received a pneumonia vaccine?: Yes *Have you received a flu vaccine this season?: Yes Other Medical History: Reports: Arthritis, Fibromyalgia. Denies: Blood Transfusion Reaction Laterality Cases: Left: Arthroscopy Shoulder, Right: Carpal Tunnel Release, Bilateral: Tonsillectomy Other Surgeries: Yes: Appendectomy, Cholecystectomy, Colonoscopy, Hysterectomy-Total Amputation: No Fractures: No - *Social History Smoking Status: Former smoker Alcohol Intake: never Alcohol Intake Frequency:: holidays/special occasions only Substance Use Type: marijuana, former substance user *Occupational Status:: unemployed Housing: house Household Members: significant other *Travel in the last 8 weeks: None Family Hx:: Unable to obtain
== END ==
PROVIDERS: Visit Provider Clinical Nurse Specialist Family Health
DX: M51.16 Intervertebral disc disorders with radiculopathy, lumbar region (principal)
CPT/HCPCS: 99212; G0463

== ENCOUNTER → 2021-02-22 09:17 | Outpatient (POV) | payer MEDICARE, SELFPAY ==
[2021-02-22 09:23] VITALS: PULSE 58; RESP 18; O2SAT 98; BMI 34.1
--- NOTE | 2021-02-22 10:30 | HMH.PAINSOAP ---
[facility] Pain Management SOAP Note Subjective:: Patient is a 75-year-old white female who presents today for follow-up. Patient did undergo lumbar epidural steroid injection early January and did get short-term relief at about 60 to 70%. Unfortunately, the patient's pain has returned. Patient has pain in her low back with radiation into bilateral lower extremities. Unfortunately the patient reports she is unable to stand or pivot to go to the bathroom alone. She is now having have assistance. She is very upset that she is also having limitations with standing and walking due to her pain. She is in wheelchair today. She has tried 6 weeks of physical therapy along with home stretching. She is unable to take anti-inflammatories due to anticoagulation use Eliquis. Eliquis is prescribed by Dr. Mo. She is also tried ice and heat therapies. The injections only give the patient short-term relief and the pain does return. She does report the pain to be affecting her quality of life. The patient is scheduled for psychological evaluation for possible intrathecal therapy. Patient does use oxygen through the day at 2 L and 4 L at bedtime. Review of Systems General: No recent weight changes, no fever, no sleep disturbances Respiratory: No cough, no shortness of air, no recurring pulmonary infections Cardiovascular/peripheral vascular: No chest pain, no palpitations, no edema, no shortness of breath Gastrointestinal: No new onset incontinence, normal bowel movements reported Genitourinary: No new onset incontinence Musculoskeletal: Low back pain with radiation into bilateral lower extremities Psychiatric: [Normal mood/affect] Neurological: [Denies weakness in extremities], [denies balance issues] Objective:: Physical exam General: Alert and oriented x3, no acute distress, pleasant and cooperative Lungs: Respirations even and unlabored, symmetrical chest expansion Eyes: PERRL Musculoskeletal: Flexion and extension of lumbar [spine] somewhat guarded secondary to pain, [antalgic gait noted] Neurological: Speech clear, no gross sensory deficit Assessment:: Degenerative disc disease lumbar spine with lumbar radiculopathy symptoms Plan:: The patient has tried conservative therapies and has gotten minimal relief. She does get relief with the injections at about 60%, but only short-term. As result we do have the patient scheduled for a psychological evaluation for possible intrathecal therapy. Patient does use nasal cannula 2 L through the day and 4 L at bedtime. She is also prescribed clonazepam by Dr. Mo 1 mg 2 times daily. Due to respiratory concerns, she and I did discuss possible bupivacaine intrathecal therapy. She would like to proceed with the trial. We are awaiting her psychological evaluation which is scheduled for February 26. Until then the patient would like to undergo injective therapy to get short-term relief. She is prescribed Eliquis and has been approved to hold Eliquis in the past by Dr. Mo. We will schedule her for the injection at L4-L5 and plan to see her back afterwards. We will also discuss her psychological evaluation. She is not diabetic. \ Possible side effects of corticosteroids have been discussed with the patient. Risks and benefits of the procedure have been explained to the patient. Patient would like to proceed with the procedure. Patient has been instructed to contact the clinic with any concerns before the next appointment. Dr. Osullivan has reviewed this note and agrees with this plan of care. This note was dictated using voice recognition software and make contain errors or omissions. [facility] History I have reviewed the patient's past medical history: Yes Medical History: Reports:: Atrial Fibrillation, Congestive Heart Failure, Chronic Obstructive Pulmonary Disease (COPD), Coronary Artery Disease, Hyperlipidemia, Hypertension, Seizures Denies:: Cancer, Diabetes Mellitus Type 1, Diabetes
== END ==
PROVIDERS: Visit Provider Clinical Nurse Specialist Family Health
DX: M51.16 Intervertebral disc disorders with radiculopathy, lumbar region (principal)
CPT/HCPCS: 99212; G0463

== ENCOUNTER → 2021-03-09 14:26 | Outpatient (POV) | payer MEDICARE, SELFPAY ==
[2021-03-09 14:55] VITALS: BP 142/76; PULSE 62; RESP 18; O2SAT 96; BMI 34.1
--- NOTE | 2021-03-09 15:03 | HMH.PAINSOAP ---
[facility] Pain Management SOAP Note Subjective:: Patient is a 75-year-old white female who presents today for follow-up. The patient is being seen in the clinic for degenerative disc disease lumbar spine with lumbar radiculopathy symptoms. She continues to have worsening low back pain. The patient is scheduled for a lumbar epidural steroid injection at L4-L5 area on March 19. She is on Eliquis. Dr. Mo has approved the patient to hold her Eliquis for the injection in the past. She is also scheduled for a psychological evaluation to determine if she is an appropriate candidate for bupivacaine intrathecal therapy. She does use oxygen throughout the day at 2 L and 4 L at bedtime. Patient is having low back pain that goes into the bilateral lower extremities. She says she is unable to stand or pivot to go to the bathroom alone she now has to have assistance for most ambulation. She is using a wheelchair today. She has had more than 6 weeks of physical therapy in the past along with home stretching. She is also tried ice and heat therapies. She is unable to take antiinflammatories due to anticoagulation therapy. Patient rates her pain an 8 out of 10 today. Review of Systems General: No recent weight changes, no fever, no sleep disturbances Respiratory: No cough, no shortness of air, no recurring pulmonary infections Cardiovascular/peripheral vascular: No chest pain, no palpitations, no edema, no shortness of breath Gastrointestinal: No new onset incontinence, normal bowel movements reported Genitourinary: No new onset incontinence Musculoskeletal: Low back pain with radiation into bilateral lower extremities Psychiatric: [Normal mood/affect] Neurological: Weakness bilateral lower extremities Objective:: Physical exam General: Alert and oriented x3, no acute distress, pleasant and cooperative Lungs: Respirations even and unlabored, symmetrical chest expansion Eyes: PERRL Musculoskeletal: Flexion and extension of lumbar [spine] somewhat guarded secondary to pain, [antalgic gait noted] Neurological: Speech clear, no gross sensory deficit Assessment:: Degenerative disc disease lumbar spine with lumbar radiculopathy symptoms Plan:: Patient is scheduled to undergo lumbar epidural steroid injection at L4-L5 on March 19. She is also scheduled for psychological evaluation for possible intrathecal therapy with bupivacaine. The patient has had a lumbar epidural steroid injection in the past and got between 60 to 70% relief with that injection in January. She would like to undergo a repeat injection until she is able to possibly undergo trial for intrathecal therapy. She is having excruciating pain today. She has been advised that we are limited with oral medications that we can provide the patient at this time. We can give the patient tramadol 50 mg 1 tablet p.o. twice daily until her injection. She has been advised to use caution with the medication due to respiratory status. She is in agreement. Patient does take clonazepam as well. Again, she has been advised to use great caution with taking both medications together. We will give her a 10-day dose of the medicine and plan to see her back for her injection. She is on Eliquis which is prescribed by Dr. Mo. She does understand she will need to hold this medication prior to the injection. This will be the patient's second lumbar epidural steroid injection. We will also order Narcan for the patient to have available in the event of oversedation. Risks and benefits of the medication have been explained in detail to the patient. The patient does understand the risk of dependence on the medication when given over a prolonged period. Patient has been advised of risks of oversedation with the prescribed medication. Narcan has been offered to the paitent in the event of oversedation. Patient has been advised that a family member should also be educated regarding admi
== END ==
PROVIDERS: Visit Provider Clinical Nurse Specialist Family Health
DX: M51.16 Intervertebral disc disorders with radiculopathy, lumbar region (principal)
CPT/HCPCS: 99212; G0463

== ENCOUNTER 2021-03-19 09:52 | Day surgery (SDC) | payer MEDICARE, SELFPAY ==
[2021-03-19 10:16] VITALS: BP 124/65; PULSE 59; RESP 18; TEMP 36.6; O2SAT 98; BMI 32.1
[2021-03-19 10:37] VITALS: PULSE 88; RESP 18; O2SAT 94
--- NOTE | 2021-03-19 10:43 | HMH.PMPROC ---
- Procedure Date: 03/19/21 Time: 10:43 Anesthesiologist:: Michele Osullivan MD Complications:: None Pre-procedure Diagnosis:: Degenerative disc disease of lumbar spine with lumbar radiculopathy symptoms Post-procedure Diagnosis:: Same Indications for Procedure:: Patient is a pleasant 75-year-old white female who we are treating for low back pain with lumbar radiculopathy symptoms. She has increasing low back pain rating down both legs. She has been off of her Eliquis for 4 days. She presents for lumbar epidural steroid injection today to help with her pain symptoms. Procedure Details:: Informed consent was obtained and the risk and benefits of the procedure was explained to the patient. The patient was taken to the procedure room. The patient was placed prone on the procedure table. The patient was prepped and draped in sterile fashion. C-arm fluoroscopy was used to view the lumbar spine. Skin and subcutaneous tissues were anesthetized using lidocaine. I placed an 18-gauge epidural needle and advanced into the L4-L5 interspace using fluoroscopic guidance and [id number] to air. After confirmation of needle placement in the epidural space with dye I injected 2 mL of lidocaine 1.5% with Depo-Medrol 80 mg. Patient tolerated the procedure well with no complications. Plan and Disposition:: We will follow-up with her in 2 weeks. Will reevaluate symptoms at that time.
[2021-03-19 11:02] VITALS: BP 138/67; PULSE 58; RESP 20; O2SAT 99
== END 2021-03-19 11:03 | disposition home or self-care (01) ==
LOC: SC.PAINP 09:53
PROVIDERS: PCP Internal Medicine Adolescent Medicine; Visit Provider Anesthesiology
DX: M51.16 Intervertebral disc disorders with radiculopathy, lumbar region (principal); I25.10 Atherosclerotic heart disease of native coronary artery without angina pectoris; E78.5 Hyperlipidemia, unspecified; I11.0 Hypertensive heart disease with heart failure; I48.91 Unspecified atrial fibrillation; I50.9 Heart failure, unspecified; M79.18 Myalgia, other site; Z87.891 Personal history of nicotine dependence; F41.9 Anxiety disorder, unspecified; F32.A Depression, unspecified; Z86.73 Personal history of transient ischemic attack (TIA), and cerebral infarction without residual deficits; Z79.899 Other long term (current) drug therapy
CPT/HCPCS: 62323; J1040; Q9966

== ENCOUNTER → 2021-04-01 10:02 | Outpatient (CLI) | payer MEDICARE, SELFPAY ==
--- NOTE | 2021-04-01 | CT_ITS ---
PROCEDURE: CT HEAD/BRAIN WO CON CLINICAL INDICATION: TIA COMPARISON: CT CT HEAD/BRAIN WO CON from 02/29/2020 TECHNIQUE: Axial images obtained. All CT scans at the facility use one or more dose reduction, viz: automated exposure control, ma/kV adjustment per patient size (including targeted exams where dose is matched to indication, i.e. head), or iterative reconstruction technique. FINDINGS: No midline shift, mass effect, intracranial hemorrhage, hydrocephalus, or extra-axial fluid collection is evident. There is generalized atrophy with hypoattenuation of the periventricular white matter consistent with microangiopathic changes. The calvarium has an unremarkable appearance. No mastoid effusion. No sinus air-fluid level. IMPRESSION: No acute intracranial finding Dictated by: Juice Shaw MD 04/01/2021 17:41 Juice Shaw MD in [place] 04/01/2021 17:41
--- NOTE | 2021-04-01 10:16 | CT_ITS ---
Procedure: CT ANGIO NECK CT ANGIO HEAD CLINICAL HISTORY: TIA COMPARISON: CT CT HEAD/BRAIN WO CON from 02/29/[address] ANGIO HEAD from 04/01/[address] HEAD/BRAIN WO CON from 04/01/2021 TECHNIQUE: IV Contrast: 100ml Isovue 370 Axial images obtained with sagittal and coronal reformats. All CT scans at the facility use one or more dose reduction, viz: automated exposure control, ma/kV adjustment per patient size (including targeted exams where dose is matched to indication, i.e. head), or iterative reconstruction technique. FINDINGS: CTA neck: The aortic arch and great vessels have an unremarkable appearance. Mild calcified eccentric plaque at the right bulb left proximal ICA. Less than 20 percent stenosis. Unremarkable vertebral arteries. No aneurysms or areas of dissection apparent. CTA head: Mild atheromatous changes of the cavernous portion of the ICAs with mild ectasia. No major intracranial occlusive process. No aneurysm, AVM, or dissection. Dependent changes are present in the posterior aspect of the lungs. No enhancing lesions or midline shift. In the left parapharyngeal region at the level of the uvula there is a 1.1 by 0.6 cm area of decreased attenuation with some minimal peripheral enhancement. IMPRESSION: 1. Negative CTA of the neck. Mild calcified plaque noted at the right bulb and left proximal ICA with less than 20 percent stenosis. 2. Negative CTA of the head 3. 1.1 x 0.6 cm oval area of decreased attenuation in the left parapharyngeal region with some minimal peripheral enhancement. Small abscess, neoplasm, or complicated cystic lesion would be included in the differential diagnosis. Please correlate with direct visualization and clinical findings follow-up recommended. entrapped mucous within parapharyngeal space is also consideration.. Dictated by: Juice Shaw MD 04/02/2021 11:09 Juice Shaw MD in [facility] 04/02/2021 11:09
[2021-04-01 10:33] LABS: Blood Urea Nitrogen 7 mg/dl (7-17); Estimated Glomerular Filt Rate 120 ml/min (>60); GFR (African American) 146 ML/MIN (>60)
== END ==
LOC: RAD 10:02
PROVIDERS: PCP Internal Medicine Adolescent Medicine; Visit Provider Internal Medicine Adolescent Medicine
DX: G45.8 Other transient cerebral ischemic attacks and related syndromes (principal)
CPT/HCPCS: 36415; 70450; 70496; 70498; 82565; 84520; Q9967

== ENCOUNTER → 2021-04-06 10:25 | Outpatient (POV) | payer MEDICARE, SELFPAY ==
[2021-04-06 10:33] VITALS: BP 171/80; PULSE 56; RESP 18; O2SAT 96; BMI 32.1
--- NOTE | 2021-04-06 11:19 | HMH.PAINSOAP ---
[facility] Pain Management SOAP Note Subjective:: Patient is a pleasant 75-year-old female who comes in here today for a follow-up after a lumbar epidural steroid injection. Patient is currently being treated for degenerative disc disease of lumbar spine with lumbar radiculopathy symptoms. After the procedure, patient states that she had about 70-80% relief but it did not last as long as the previous ones that she had. Last time we talked this patient, we have discussed that she is a good candidate for an intrathecal pain pump. Patient has gone to see a psychiatrist for a psychiatric evaluation. According to the psych eval, she is an appropriate and a competent candidate for this procedure. I have discussed with the patient all the risk and benefits of the procedures. She rates her pain today as 5 out of 10. Her Ori number is [id number] with an active morphine equivalent of 0. Review of Systems General: No recent weight changes, no fever, no sleep disturbances Respiratory: No cough, no shortness of air, no recurring pulmonary infections Cardiovascular/peripheral vascular: No chest pain, no palpitations, no edema, no shortness of breath Gastrointestinal: No new onset incontinence, normal bowel movements reported Genitourinary: No new onset incontinence Musculoskeletal: Low back pain Psychiatric: [Normal mood/affect] Neurological: [Denies weakness in extremities], [denies balance issues] Objective:: Physical exam General: Alert and oriented x3, no acute distress, pleasant and cooperative Lungs: Respirations even and unlabored, symmetrical chest expansion Eyes: PERRL Musculoskeletal: Flexion and extension of lumbar [spine] somewhat guarded secondary to pain, [antalgic gait noted] Neurological: Speech clear, no gross sensory deficit Assessment:: Degenerative disc disease of the lumbar spine with lumbar radiculopathy symptoms Plan:: Patient received significant relief after the procedure of about 70 to 80%. She rates her pain today as 5 out of 10. Patient has tried and failed oral medication and at home exercises for greater than 6 weeks in the past. We have discussed with the patient that she is a good candidate for an intrathecal pain pump. Patient has been informed about the procedure and wants to move forward with this. Patient's psych evaluation is appropriate for this procedure. We will schedule the patient for a pump trial. Patient is currently on Plavix and will have to stop it for 4 days before the procedure. Risks and benefits of the procedure have been explained to the patient. Patient has been instructed to contact the clinic with any concerns before the next appointment. Dr. Osullivan has reviewed this note and agrees with this plan of care. This note was dictated using voice recognition software and make contain errors or omissions. [facility] History Medical History: Reports:: Atrial Fibrillation, Congestive Heart Failure, Chronic Obstructive Pulmonary Disease (COPD), Coronary Artery Disease, Hyperlipidemia, Hypertension Denies:: Cancer, Diabetes Mellitus Type 1, Diabetes Mellitus Type 2, MRSA, Seizures *Have you ever received a pneumonia vaccine?: Yes *Have you received a flu vaccine this season?: Yes Other Medical History: Reports: Arthritis, Fibromyalgia. Denies: Blood Transfusion Reaction Laterality Cases: Left: Arthroscopy Shoulder, Right: Carpal Tunnel Release, Bilateral: Tonsillectomy Other Surgeries: Yes: Appendectomy, Cholecystectomy, Colonoscopy, Hysterectomy-Total Amputation: No Fractures: No - *Social History Smoking Status: Former smoker Alcohol Intake: never Alcohol Intake Frequency:: holidays/special occasions only Substance Use Type: marijuana, former substance user *Occupational Status:: unemployed Housing: house Household Members: significant other *Travel in the last 8 weeks: None Family Hx:: Unable to obtain
--- NOTE | 2021-07-09 10:18 | PC.NURSE ---
1013-Approval received from Dr. Mo, via [facility], for patient to hold Plavix and Elliquis for pain management procedure. 1015-patient notified of procedure date/time as well as instructions to hold blood thinners. understanding verbalized.
== END ==
PROVIDERS: Visit Provider Clinical Nurse Specialist Family Health
DX: M51.16 Intervertebral disc disorders with radiculopathy, lumbar region (principal)
CPT/HCPCS: 99212; G0463

== ENCOUNTER 2021-07-16 09:42 | Emergency (ER) | payer MEDICARE, SELFPAY ==
[2021-07-16 09:43] VITALS: BP 139/52; PULSE 58; RESP 20; TEMP 37.1; O2SAT 94; BMI 31.6
--- NOTE | 2021-07-16 09:56 | XR_ITS ---
FINAL REPORT CLINICAL HISTORY: ams COMPARISON: March 04, 2020 FINDINGS: SINGLE VIEW CHEST The heart size is enlarged. The mediastinum is within normal limits. There is mild but worsening left basilar atelectasis or pneumonia.. There is no evidence of pneumothorax. There are postoperative changes involving the left shoulder. IMPRESSION: Mild but worsening left basilar atelectasis or pneumonia.. Reviewed, Interpreted and Dictated by David Sawant III, MD Transcribed by Kosta Cook Authenticated by David Sawant III, MD on 07/16/2021 10:24:50 AM [facility]
--- NOTE | 2021-07-16 09:57 | HMH.EDGENADL ---
ED Disposition Clinical Impression: Altered mental status Qualifiers: Altered mental status type: somnolence Qualified Code(s): R40.0 - Somnolence Disposition: Home, Self-Care Condition on Discharge: Good Instructions: DI for Altered Mental Status Additional Instructions: Follow-up with primary care provider. Call to make appointment. Call pain management clinic, Dr. Osullivan, and reschedule pain pump trial. Return to the emergency department if condition worsens. Referrals: Deandre Mo MD [Primary Care Provider] - - Critical Care Critical Care Time: No Attestation: On 07/16/21, the high probability of a clinically significant, sudden or life threatening deterioration of the following system(s) required my full and direct attention, intervention and personal management. The time I documented below is in addition to time spent performing reported procedures but includes the following listed in this critical care notation. Medical Decision Making - Medical Records Medical records reviewed: Yes: I reviewed the patient's medical records. MR Comment: Reviewed most recent pain clinic note from Dr. Osullivan 04/06/2022. Intrathecal pain pump planned. Trial scheduled for today. - Ori Inquiry Pt receiving controlled substance: No Vital Signs: 07/16/21 09:43 07/16/21 10:01 07/16/21 10:38 Temperature 98.8 F Temperature Source Oral Pulse Rate 62 61 Pulse Rate [Radial] 58 L Respiratory Rate 20 16 12 Blood Pressure 155/78 H 155/75 H Blood Pressure [Right Arm] 139/52 L Blood Pressure Mean 98 95 Blood Pressure Mean [Right Arm] 81 Blood Pressure Position [Right Arm] Sitting 02 Sat by Pulse Oximetry 94 L 99 99 Oxygen Delivery Method Nasal Cannula Oxygen Flow Rate (LPM) 2 07/16/21 11:11 Temperature Temperature Source Pulse Rate 61 Pulse Rate [Radial] Respiratory Rate 18 Blood Pressure 165/86 H Blood Pressure [Right Arm] Blood Pressure Mean 112 Blood Pressure Mean [Right Arm] Blood Pressure Position [Right Arm] 02 Sat by Pulse Oximetry 99 Oxygen Delivery Method Oxygen Flow Rate (LPM) - Lab Data Lab Results 07/16/21 10:00: WBC 4.6 L, RBC 4.44, Hgb 12.8, Hct 41.1, MCV 92.6, MCH 28.8, MCHC 31.1 L, RDW 14.6, Plt Count 230, MPV 9.7, Neut % (Auto) 70.0, Lymph % (Auto) 20.7, [place] % (Auto) 6.9, Eos % (Auto) 1.6, Baso % (Auto) 0.8, Neut # (Auto) 3.2, Lymph # (Auto) 1.0, [place] # (Auto) 0.3, Eos # (Auto) 0.1, Baso # (Auto) 0.0 07/16/21 10:00: Sodium 132 L, Potassium 3.7, Chloride 95 L, Carbon Dioxide 34 H, Anion Gap 6.7, BUN 4 L, Creatinine 0.50 L, Estimated Creat Clear 70, Estimated GFR 120, Est GFR ( Amer) 146, Glucose 107 H, Calcium 8.2 L, Total Bilirubin 0.9, AST 24, ALT 13, Alkaline Phosphatase 91, Troponin I < 0.01, Total Protein 6.5, Albumin 3.5, Globulin 3.0, Albumin/Globulin Ratio 1.2 07/16/21 10:07: Specimen Source Left radial, O2 % 2l, ABG pH 7.50 H, ABG pCO2 38.5, ABG pO2 109.7 H, ABG HCO3 29.1 H, ABG Total CO2 30.3 H, ABG O2 Saturation 99, ABG Base Excess 5.8 H, Juice Test Acceptable 07/16/21 11:00: Urine Color Yellow, Urine Appearance Clear, Urine pH 7.0, Ur Specific [place] 1.015, Urine Protein Negative, Urine Glucose (UA) Negative, Urine Ketones Trace, Urine Blood Negative, Urine Nitrate Negative, Urine Bilirubin Negative, Urine Urobilinogen 1.0, Ur Leukocyte Esterase Negative, Urine RBC None, Urine WBC Occasional, Ur Squamous Epith Cells None, Urine Bacteria Trace 07/16/21 11:45: Lactate 1.2 Result diagrams: 07/16/21 10:00 07/16/21 10:00 Orders (Tests/Meds): ORDERS Category Date Time Status Troponin I Q3 Lab 07/16/21 13:15 Ordered Troponin I Q3 Lab 07/16/21 16:15 Ordered Blood Culture Stat Micro 07/16/21 10:08 Ordered - Radiology Data #1 Image(s): Chest Image Reviewed: Yes I reviewed the patient's radiology image, Yes I have reviewed radiologist's interpretation Procedure(s): XR chest portable Accession Number(s): [id number] cc: Vijay Mo
[2021-07-16 10:01] VITALS: BP 155/78; PULSE 62; RESP 16; O2SAT 99
--- NOTE | 2021-07-16 10:07 | CT_ITS ---
FINAL REPORT CLINICAL HISTORY: [facility] COMPARISON: April 01, 2021 FINDINGS: Axial images of the head were obtained without contrast. Coronal reformatted images were also obtained. This study was performed with techniques to keep radiation doses as low as reasonably achievable (ALARA). Individualized dose reduction techniques using automated exposure control or adjustment of mA and/or kV according to the patient''s size were employed. There is generalized age-appropriate atrophy. Periventricular low-attenuation areas are seen consistent with mild chronic ischemic changes. There is no evidence of intracranial hemorrhage or mass. There is no evidence of acute infarct. There is no evidence of shift of the midline structures. No skull abnormality is seen on the bone window images. IMPRESSION: Atrophy and mild periventricular chronic ischemic changes. No acute intracranial abnormality identified. Reviewed, Interpreted and Dictated by David Sawant III, MD Transcribed by Kosta Cook Authenticated by David Sawant III, MD on 07/16/2021 10:59:22 AM [facility]
--- NOTE | 2021-07-16 10:09 | ECG_ITS ---
APPROVED REPORT Exam: Resting ECG HR:59 bpm ECG Measurements Heart Rate 59 AXES WY 187 P 55 QRSd 100 QRS -12 QT 439 T 2 QTc 438 Conclusion SINUS BRADYCARDIA MINIMAL ST DEPRESSION [0.025+ mV ST DEPRESSION] BORDERLINE ECG UNCONFIRMED REPORT Electronically signed by : Carlos Villalobos MD 07/17/2021 08:16:47
--- NOTE | 2021-07-16 10:19 | PC.NURSE ---
Patient taken to CT
[2021-07-16 10:20] LABS: Chloride 95 mmol/L (98-107); Potassium 3.7 mmoL/L (3.5-5.1); Sodium 132 mmol/L (136-145)
[2021-07-16 10:21] LABS: Basophils % 0.8 % (0.1-2.0); Eosinophils # 0.1 K/mm3 (0.0-0.4); Eosinophils % 1.6 % (0.1-12.0); Hematocrit 41.1 % (37.0-47.0); Hemoglobin 12.8 g/dL (12.2-16.2); Lymphocytes % 20.7 % (10-50); Mean Corpuscular HGB Conc 31.1 g/dL (31.8-35.4); Mean Corpuscular Hemoglobin 28.8 pg (27.0-31.2); Mean Corpuscular Volume 92.6 fl (81-99); Mean Platelet Volume 9.7 fl (7.4-10.4); Monocytes # 0.3 K/mm3 (0.1-1.0); Monocytes % 6.9 % (1.7-9.3); Neutrophils # 3.2 K/mm3 (1.8-7.8); Platelet Count 230 K/mm3 (142-424); Red Blood Count 4.44 M/mm3 (4.20-5.40); Red Cell Distribution Width 14.6 % (11.5-17.5); White Blood Count 4.6 K/mm3 (4.8-10.8)
[2021-07-16 10:23] LABS: Alanine Aminotransferase 13 U/L (12-78); Albumin Level 3.5 g/dl (3.5-5.0); Albumin/Globulin Ratio 1.2 (1.1-1.8); Alkaline Phosphatase 91 U/L (38-126); Anion Gap 6.7 mEq/L (5-15); Aspartate Amino Transferase 24 U/L (14-36); Bilirubin,Total 0.9 mg/dl (0.2-1.3); Blood Urea Nitrogen 4 mg/dl (7-17); Calcium 8.2 mg/dl (8.4-10.2); Carbon Dioxide 34 mmol/L (22.0-30.0); Creatinine Clearance Estimated 70 mL/min (50-200); Estimated Glomerular Filt Rate 120 ml/min (>60); GFR (African American) 146 ML/MIN (>60); Glucose 107 mg/dl (74-100); Total Protein,Serum 6.5 g/dl (6.3-8.2)
--- NOTE | 2021-07-16 10:29 | PC.NURSE ---
Patient back from CT.
[2021-07-16 10:37] LABS: Troponin I < 0.01 ng/ml (0.00-0.034)
[2021-07-16 10:38] VITALS: BP 155/75; PULSE 61; RESP 12; O2SAT 99
[2021-07-16 10:40] LABS: ABG Base Excess 5.8 mmol/L (-2.4-2.3); ABG HCO3 29.1 mmhg (22.0-26.0); ABG Oxygen Saturation 99 % (90-100); ABG PCO2 38.5 mmhg (35.0-45.0); ABG PO2 109.7 mmhg (80-100); ABG TCO2 30.3 mmhg (23-27)
[2021-07-16 10:47] LABS: Allen's Test Acceptable; Oxygen 2L %; Source Left Radial
[2021-07-16 11:11] VITALS: BP 165/86; PULSE 61; RESP 18; O2SAT 99
[2021-07-16 11:28] LABS: Microscopic, Urine URINE MICROSCOPIC (MICROSCOPIC)
[2021-07-16 11:32] LABS: Appearance,Urine CLEAR (Clear); Bilirubin,Urine Negative (Negative); Blood, Urine Negative (Negative); Color,Urine YELLOW (Yellow); Glucose,Urine (UA) Negative (Negative); Ketones,Urine TRACE (Negative); Leukocyte Esterase,Urine Negative (Negative); Nitrate,Urine Negative (Negative); Protein,Urine Negative (Negative); Specific Gravity, Urine 1.015 (1.005-1.030)
[2021-07-16 11:46] LABS: Bacteria,Urine Trace /lpf; WBC,Urine Occasional #/hpf (0-3)
[2021-07-16 12:02] LABS: Lactic Acid 1.2 mmol/L (0.7-2.1)
--- NOTE | 2021-07-16 12:30 | PC.NURSE ---
got pt up ambulatory using a walker. pt needed assist to help ambulate.
[2021-07-16 13:27] VITALS: BP 135/74; PULSE 78; RESP 20; TEMP 36.6; O2SAT 94
== END 2021-07-16 13:30 | disposition home or self-care (01) ==
PROVIDERS: Emergency Provider Emergency Medicine; PCP Internal Medicine Adolescent Medicine
DX: R40.0 Somnolence (principal); R41.82 Altered mental status, unspecified; I48.0 Paroxysmal atrial fibrillation; J44.9 Chronic obstructive pulmonary disease, unspecified; I25.10 Atherosclerotic heart disease of native coronary artery without angina pectoris; E78.5 Hyperlipidemia, unspecified; I10 Essential (primary) hypertension; M79.7 Fibromyalgia; Z87.891 Personal history of nicotine dependence; Z99.81 Dependence on supplemental oxygen
CPT/HCPCS: 70450; 71045; 80053; 81001; 82803; 83605; 84484; 85025; 93005; 96365; 99284

== ENCOUNTER → 2021-08-11 14:32 | Outpatient (CLI) | payer MEDICARE, SELFPAY | LOC: RT 14:33 | PROVIDERS: PCP Internal Medicine Adolescent Medicine; Visit Provider Nurse Practitioner Family | DX: G47.33 Obstructive sleep apnea (adult) (pediatric) (principal); J96.11 Chronic respiratory failure with hypoxia; Z99.81 Dependence on supplemental oxygen | CPT/HCPCS: 94762 ==

== ENCOUNTER → 2021-09-27 08:39 | Outpatient (POV) | payer MEDICARE, SELFPAY ==
--- NOTE | 2021-09-27 09:58 | HMH.PAINSOAP ---
[facility] Pain Management SOAP Note Subjective:: Patient is a pleasant 75-year-old female who is here today for follow-up. Patient is current being treated for degenerative disc disease of lumbar spine with lumbar radiculopathy symptoms. We have been managing this patient with injective therapy in the past and she typically gets 70 to 80% relief. However, she only gets less amount of relief after these injections. When we last talked to this patient, we discussed with her that she is a good candidate for intrathecal pain pump. We discussed this procedure in detail with the patient and she wants to move forward with this procedure. We then referred her for psych eval. Her psych evaluation was appropriate and she was deemed competent to have the intrathecal pain pump. During the time when we were scheduling her for the pump trial, she fell ill and had to cancel. She presents today with worsening LBP that radiates to BLE. She wants to schedule another epidural injection and wants to proceed with the pump trial. Rates pain today as 6/10. Ori [id number], MEQ 0. Review of Systems: General: No recent weight changes, no fever, no sleep disturbances Respiratory: No cough, no shortness of air, no recurring pulmonary infections Cardiovascular/peripheral vascular: No chest pain, no palpitations, no edema, no shortness of breath Gastrointestinal: No new onset incontinence, normal bowel movements reported Genitourinary: No new onset incontinence Musculoskeletal: Low back pain Psychiatric: [Normal mood/affect] Neurological: [Denies weakness in extremities], [denies balance issues] Objective:: Physical Exam: General: Alert and oriented x3, no acute distress, pleasant and cooperative Lungs: Respirations even and unlabored, symmetrical chest expansion Eyes: PERRL Musculoskeletal: Flexion and extension of lumbar [spine] somewhat guarded secondary to pain, [antalgic gait noted] Neurological: Speech clear, no gross sensory deficit Assessment:: Degenerative disease of lumbar spine with lumbar radiculopathy symptoms Plan:: We have been managing this patient for a while for degenerative disease of the lumbar spine with lumbar radiculopathy symptoms. Patient has tried and failed conservative therapies such as oral medication, injective therapy, physical therapy and home exercises for greater than 6 weeks. We will schedule the patient for a lumbar epidural steroid injection at L4-L5. Risks and benefits of the procedure have been explained to the patient. Patient would like to proceed with the procedure. Patient is on Plavix and will have to stop this medication prior to the procedure. We will reach out to Dr. Mo to see if she can stop this medication. We will also schedule the patient for an intrathecal pump trial. Patient has been instructed to contact the clinic with any concerns before the next appointment. Dr. Osullivan has reviewed this note and agrees with this plan of care. This note was dictated using voice recognition software and make contain errors or omissions. [facility] History Medical History: Reports:: Atrial Fibrillation, Congestive Heart Failure, Chronic Obstructive Pulmonary Disease (COPD), Coronary Artery Disease, Depression, Hyperlipidemia, Hypertension, Transient Ischemic Attacks (TIA) Denies:: Cancer, Diabetes Mellitus Type 1, Diabetes Mellitus Type 2, MRSA, Seizures *Have you ever received a pneumonia vaccine?: Yes *Have you received a flu vaccine this season?: Yes Other Medical History: Reports: Arthritis, Fibromyalgia, Other (alber). Denies: Blood Transfusion Reaction Laterality Cases: Left: Arthroscopy Shoulder, Right: Carpal Tunnel Release, Bilateral: Tonsillectomy Other Surgeries: Yes: Appendectomy, Cholecystectomy, Colonoscopy, Hysterectomy-Total Amputation: No Fractures: No - *Social History Smoking Status: Former smoker Alcohol Intake: never Alcohol Intake Frequency:: holidays/special occasions only Substance Use Type: marijuana, f
[2021-09-27 10:16] VITALS: BP 160/77; PULSE 55; RESP 20; TEMP 36.5; O2SAT 98; BMI 33.6
== END ==
PROVIDERS: Visit Provider Student in an Organized Health Care Education/Training Program
DX: M51.16 Intervertebral disc disorders with radiculopathy, lumbar region (principal)
CPT/HCPCS: 99212; G0463

== ENCOUNTER → 2021-09-29 07:04 | Outpatient (CLI) | payer MEDICARE, SELFPAY ==
--- NOTE | 2021-09-29 07:05 | CT_ITS ---
FINAL REPORT TECHNIQUE: Axial images were obtained from the lung apex to the mid abdomen by computed tomography. Low-dose protocol was utilized. CLINICAL HISTORY: lung cancer screening FORMER SMOKER QUIT 5 YEARS AGO 1PPD X27 YEARS COMPARISON: 09/30/2020 FINDINGS: CHEST CT LOW DOSE CTDI vol (mGy): 2.90 DLP (mGy-cm): 78.13 There is moderate coronary artery calcification. There is no axillary adenopathy. There is no hilar or mediastinal adenopathy. The heart is normal in size. There is no pericardial or pleural effusion. Lung window images demonstrate no suspicious infiltrate or nodule. There is a calcified granuloma in the right upper lobe. Note is made of mild scarring. No new mass or nodule is identified. There is mild diffuse bronchial wall thickening consistent with bronchitis. Limited images of the upper abdomen are unremarkable. IMPRESSION: Lung RADS category 1. Recommend 12 month follow-up low-dose chest CT. Reviewed, Interpreted and Dictated by David Sawant III, MD Transcribed by Therese Rollins Authenticated and . [facility]
== END ==
PROVIDERS: PCP Internal Medicine Adolescent Medicine; Visit Provider Internal Medicine Pulmonary Disease
DX: Z87.891 Personal history of nicotine dependence (principal); Z12.2 Encounter for screening for malignant neoplasm of respiratory organs
CPT/HCPCS: 71271

== ENCOUNTER 2021-10-15 09:42 | Day surgery (SDC) | payer MEDICARE, SELFPAY ==
[2021-10-15 09:50] VITALS: BP 185/85; PULSE 58; RESP 22; TEMP 36.6; O2SAT 98; BMI 29.0
[2021-10-15 10:53] VITALS: BP 145/77; PULSE 58; RESP 18
[2021-10-15 10:54] VITALS: BP 145/79; PULSE 58; RESP 18; O2SAT 98
--- NOTE | 2021-10-15 11:02 | HMH.PMPROC ---
- Procedure Date: 10/15/21 Time: 11:02 Anesthesiologist:: Michele Osullivan MD Complications:: None Pre-procedure Diagnosis:: Degenerative disc disease of lumbar spine with lumbar radiculopathy symptoms Post-procedure Diagnosis:: Same Indications for Procedure:: This patient is a pleasant 75-year-old white female who we are treating for low back pain with lumbar radiculopathy symptoms. She does usually get 80% relief with lumbar epidural steroid injections however is not been long-lasting. We did discuss intrathecal therapy in the past she did do a psychological evaluation however in preparing for the pump she did fall ill so we had to delay. She presents for repeat lumbar epidural steroid injection today. We will see how she does with these and then pursue intrathecal therapy if needed in the future. Procedure Details:: Informed consent was obtained and the risk and benefits of the procedure was explained to the patient. The patient was taken to the procedure room. The patient was placed prone on the procedure table. The patient was prepped and draped in sterile fashion. C-arm fluoroscopy was used to view the lumbar spine. Skin and subcutaneous tissues were anesthetized using lidocaine. I placed an 18-gauge epidural needle and advanced into the L4-L5 interspace using fluoroscopic guidance and [id number] to air. After confirmation of needle placement in the epidural space with dye I injected 2 mL of lidocaine 1.5% with Depo-Medrol 80 mg. Patient tolerated the procedure well with no complications. Plan and Disposition:: We will follow-up with her in 2 weeks. Will reevaluate her symptoms at that time.
[2021-10-15 11:19] VITALS: BP 190/94; PULSE 58; RESP 18; O2SAT 98
== END 2021-10-15 11:20 | disposition home or self-care (01) ==
LOC: SC.PAINP 09:43
PROVIDERS: PCP Internal Medicine Adolescent Medicine; Visit Provider Anesthesiology
DX: M51.16 Intervertebral disc disorders with radiculopathy, lumbar region (principal)
CPT/HCPCS: 62323; J1040; Q9966

== ENCOUNTER → 2021-11-04 13:22 | Outpatient (POV) | payer MEDICARE, SELFPAY ==
[2021-11-04 13:44] VITALS: BP 154/69; PULSE 56; RESP 20; O2SAT 100; BMI 29.0
--- NOTE | 2021-11-04 13:58 | HMH.PAINSOAP ---
[facility] Pain Management SOAP Note Subjective:: Patient is a pleasant 75-year-old female who presents today for follow-up after a lumbar epidural steroid injection. Patient is currently being treated for degenerative disc disease of the lumbar spine with lumbar radiculopathy symptoms. We have been managing this patient with injective therapy. After her injection, she had significant relief of 70 to 80% and continues to have some relief today. Rates her pain today as 6 out of 10. We have discussed with this patient in the past that she is a good candidate for intrathecal pain pump therapy and she is interested in the system. Her psych evaluation deems her appropriate and competent to have the intrathecal pain pump. She has tried and failed other conservative therapies such as oral medication, physical therapy, and home exercises for greater than 6 weeks. She does have COPD and has to be on 2 L oxygen during the day and 4 L at night. Ori [id number] with an active morphine equivalent of 0. Review of Systems: General: No recent weight changes, no fever, no sleep disturbances Respiratory: No cough, no shortness of air, no recurring pulmonary infections Cardiovascular/peripheral vascular: No chest pain, no palpitations, no edema, no shortness of breath Gastrointestinal: No new onset incontinence, normal bowel movements reported Genitourinary: No new onset incontinence Musculoskeletal: Low back pain Psychiatric: [Normal mood/affect] Neurological: [Denies weakness in extremities], [denies balance issues] Objective:: Physical Exam: General: Alert and oriented x3, no acute distress, pleasant and cooperative Lungs: Respirations even and unlabored, symmetrical chest expansion Eyes: PERRL Musculoskeletal: Flexion and extension of lumbar [spine] somewhat guarded secondary to pain, [antalgic gait noted] Neurological: Speech clear, no gross sensory deficit Assessment:: Degenerative disease of lumbar spine with lumbar radiculopathy symptoms Plan:: We will seek approval for intrathecal pain pump trial. Patient is on Plavix and will need to stop this medication prior to her intrathecal pain pump trial. Patient has been instructed to contact the clinic with any concerns before the next appointment. Dr. Osullivan has reviewed this note and agrees with this plan of care. This note was dictated using voice recognition software and make contain errors or omissions. [facility] History Medical History: Reports:: Atrial Fibrillation, Congestive Heart Failure, Chronic Obstructive Pulmonary Disease (COPD), Coronary Artery Disease, Depression, Hyperlipidemia, Hypertension, Transient Ischemic Attacks (TIA) Denies:: Cancer, Diabetes Mellitus Type 1, Diabetes Mellitus Type 2, MRSA, Seizures *Have you ever received a pneumonia vaccine?: Yes *Have you received a flu vaccine this season?: Yes Other Medical History: Reports: Arthritis, Fibromyalgia, Other. Denies: Blood Transfusion Reaction Laterality Cases: Left: Arthroscopy Shoulder, Right: Carpal Tunnel Release, Bilateral: Tonsillectomy Other Surgeries: Yes: Appendectomy, Cholecystectomy, Colonoscopy, Hysterectomy-Total Amputation: No Fractures: No - *Social History Smoking Status: Never smoker Alcohol Intake: never Alcohol Intake Frequency:: holidays/special occasions only Substance Use Type: marijuana, former substance user *Occupational Status:: retired Housing: house Household Members: significant other, family *Travel in the last 8 weeks: None - Psychiatric History Pschychiatric History:: Reports:: Depression Family Hx:: No significant family history
== END ==
PROVIDERS: Visit Provider Student in an Organized Health Care Education/Training Program
DX: M51.16 Intervertebral disc disorders with radiculopathy, lumbar region (principal)
CPT/HCPCS: 99212; G0463

== ENCOUNTER 2021-11-19 08:31 | Day surgery (SDC) | payer MEDICARE, SELFPAY ==
[2021-11-19] VITALS (10 sets, daily range): BP systolic 116–145; BP diastolic 63–82; PULSE 56–62; RESP 18–22; TEMP 36.3; O2SAT 98–100; BMI 29.0
--- NOTE | 2021-11-19 09:31 | HMH.PMPROC ---
- Procedure Date: 11/19/21 Time: 09:32 Anesthesiologist:: Michele Osullivan MD Complications:: None Pre-procedure Diagnosis:: Degenerative disc disease of lumbar spine with lumbar radiculopathy symptoms and scoliosis Post-procedure Diagnosis:: Same Indications for Procedure:: Patient is a pleasant 75-year-old white female who we are treating for low back pain with lumbar radiculopathy symptoms and scoliosis. She has failed all previous conservative treatments including injections, oral medications, physical therapy and she is not a candidate for surgery. She is O2 dependent so we will do an intrathecal pump trial with bupivacaine. He does have a successful psychological evaluation. Procedure Details:: Pain pump trial Informed consent was obtained and the risk and benefits of the procedure was explained to the patient. The patient was taken to the procedure room and placed prone on the procedure table. Patient was prepped and draped in sterile fashion. C-arm fluoroscopy was used to view the lumbar spine. The skin and subcutaneous tissues were anesthetized using lidocaine. I placed a 18-gauge spinal needle into the L4-5 interspace and advanced until clear CSF was obtained. After this intrathecal catheter was inserted and advanced very easily to the L1 vertebral body. The needle was withdrawn. We were able to freely withdraw clear CSF through the catheter. We then injected intrathecal bupivacaine single shot bolus of 3 mg followed by saline and followed by the previous CSF that was withdrawn. The needle and catheter were then removed and a Band-Aid was placed. Patient tolerated the procedure well with no complications. We reevaluated the patient after 30 minutes to 1 hour. She was also reassessed by physical therapy. Patient did have some numbness in her legs however after the numbness wore off she had significant relief of her pain symptoms. She was 89% better. She had significant improvement with physical therapy. She was much more functional. This was a successful trial. We will seek approval for permanent placement of intrathecal pain pump with bupivacaine. We will start with intrathecal bupivacaine 5 mg/mL to start at 2.5 mg/day. Catheter tip will be at the L1 vertebral body. Plan and Disposition:: We will seek approval for permanent placement of intrathecal pain pump. This will be with intrathecal bupivacaine 5 mg/mL to start at 2.5 mg/day. Catheter tip will be at the L1 vertebral body. It was a successful intrathecal pump trial.
--- NOTE | 2021-11-19 13:04 | PC.NURSE ---
0920-PT ASSISTED TO BAY ACCOMPANIED BY NURSING STAFF VIA W/C. ASSISTED PT TO RECLINER. VSS, NO C/O PAIN. BREAKFAST TRAY PROVIDED PER REQUEST. LUMBAR DRESSING C/D/I. 0935-PT RESTING IN CHAIR. TOLERATED PO WITHOUT COMPLAINTS. VSS, NO C/O PAIN. LUMBAR DRESSING C/D/I. NO NEEDS OR CONCERNS AT THIS TIME 0950-PT RESTING IN CHAIR. TOLERATED PO WITHOUT COMPLAINTS. VSS, NO C/O PAIN. REPORTS BLE NUMB, PT ABLE TO MOVE BLE. LUMBAR DRESSING C/D/I. NO NEEDS OR CONCERNS AT THIS TIME 1005-PT RESTING IN CHAIR. VSS, NO C/O PAIN. LUMBAR DRESSING C/D/I. NO NEEDS OR CONCERNS AT THIS TIME. 1035-PT RESTING IN CHAIR. VSS, NO C/O PAIN. LUMBAR DRESSING C/D/I. NO NEEDS OR CONCERNS AT THIS TIME. 1105-PT RESTING IN CHAIR. VSS, NO C/O PAIN. NO NEEDS OR CONCERNS AT THIS TIME. 1115-PT INCONTINENT OF BOWEL. PT ASSISTED WITH CARE. 1130-PT AT BEDSIDE. PT REPORTS THAT BLE ARE NUMB UNBLE TO STAND AT THIS TIME. 1135-PT RESTING IN CHAIR. VSS, NO C/O PAIN. NO NEEDS OR CONCERNS AT THIS TIME 1210-PT ABLE TO STAND WITH ASSISTANCE, REPORTS LEGS FEELING WEAK.
== END 2021-11-19 12:30 | disposition home or self-care (01) ==
LOC: SC.PAINP 08:33
PROVIDERS: PCP Internal Medicine Adolescent Medicine; Visit Provider Anesthesiology
DX: M51.16 Intervertebral disc disorders with radiculopathy, lumbar region (principal); M41.9 Scoliosis, unspecified
CPT/HCPCS: 62323; 96365

== ENCOUNTER → 2021-11-30 11:09 | Outpatient (POV) | payer MEDICARE, SELFPAY ==
[2021-11-30 11:16] VITALS: BP 149/73; PULSE 55; RESP 20; O2SAT 98; BMI 29.0
--- NOTE | 2021-11-30 11:56 | HMH.PAINSOAP ---
[facility] Pain Management SOAP Note Subjective:: Patient is a pleasant 76-year-old female who presents today for follow-up of a intrathecal pain pump trial on 11/19/2021. We are currently treating the patient for degenerative disc disease of lumbar spine with lumbar radiculopathy symptoms and scoliosis. Patient states her trial provided significant improvement of her symptoms. She states that she had 100% relief of her low back pain and states that it just started coming back a few days ago. Patient states that she was able to increase her normal activity and had significant improvement of her activities of daily living. Patient stated I never thought I'd be pain-free like the trial provided . patient previously had a psychiatric evaluation that deemed her appropriate and competent to have her intrathecal pain pump placed. Patient has tried and failed conservative treatments in the past including oral medications, injective therapy, physical therapy and home exercises for more than 6 weeks. Patient does have COPD and is currently on 2 L of oxygen during the day and 4 L at night. Her Ori is [id number]. It has been reviewed and appropriate. Review of Systems: General: No recent weight changes, no fever, no sleep disturbances Respiratory: No cough, no shortness of air, no recurring pulmonary infections Cardiovascular/peripheral vascular: No chest pain, no palpitations, no edema, no shortness of breath Gastrointestinal: No new onset incontinence, normal bowel movements reported Genitourinary: No new onset incontinence Musculoskeletal: Low back pain Psychiatric: [Normal mood/affect] Neurological: [Denies weakness in extremities], [denies balance issues] Objective:: Physical Exam: General: Alert and oriented x3, no acute distress, pleasant and cooperative Lungs: Respirations even and unlabored, symmetrical chest expansion Eyes: PERRL Musculoskeletal: Flexion and extension of lumbar [spine] somewhat guarded secondary to pain, [antalgic gait noted] Neurological: Speech clear, no gross sensory deficit Assessment:: Degenerative disc disease of lumbar spine with lumbar radiculopathy symptoms, scoliosis Plan:: Patient had 100% relief with the pain pump trial. I have discussed with the patient regarding proceeding forward with the intrathecal pain pump implant. Risk and benefits were discussed. The patient would like to proceed forward with this procedure. It has been submitted to insurance at this time however it has not been approved. We did advise the patient that we would contact her once we had approval. We will plan for the intrathecal pain pump implant with L4-5 interspace and the catheter tip at L1 vertebral body. We will plan on doing a pump with bupivacaine at 5 mg/mL and a starting dose of 2.5 mg/day. Patient has been instructed to contact the clinic with any concerns before the next appointment. Dr. Osullivan has reviewed this note and agrees with this plan of care. This note was dictated using voice recognition software and make contain errors or omissions. [facility] History I have reviewed the patient's past medical history: Yes Medical History: Reports:: Atrial Fibrillation, Congestive Heart Failure, Chronic Obstructive Pulmonary Disease (COPD), Coronary Artery Disease, Depression, Hyperlipidemia, Hypertension, Transient Ischemic Attacks (TIA) Denies:: Cancer, Diabetes Mellitus Type 1, Diabetes Mellitus Type 2, MRSA, Seizures *Have you ever received a pneumonia vaccine?: Yes *Have you received a flu vaccine this season?: Yes Other Medical History: Reports: Arthritis, Fibromyalgia, Other. Denies: Blood Transfusion Reaction Laterality Cases: Left: Arthroscopy Shoulder, Right: Carpal Tunnel Release, Bilateral: Tonsillectomy Other Surgeries: Yes: Appendectomy, Cholecystectomy, Colonoscopy, Hysterectomy-Total Amputation: No Fractures: No - *Social History Smoking Status: Never smoker Alcohol Intake: never Alcohol Intake Frequency:: holidays/special
== END ==
PROVIDERS: PCP Internal Medicine Adolescent Medicine; Visit Provider Nurse Practitioner Family
DX: M51.16 Intervertebral disc disorders with radiculopathy, lumbar region (principal); M41.9 Scoliosis, unspecified
CPT/HCPCS: 99212; G0463

== ENCOUNTER → 2022-01-03 10:42 | Outpatient (POV) | payer MEDICARE, SELFPAY ==
--- NOTE | 2022-01-03 11:02 | EXP.PAIN.SOA ---
[facility] Pain Management SOAP Note Subjective:: Patient is a pleasant 76-year-old female who presents today for follow-up of insurance denial of a intrathecal pain pump implant. We are currently treating the patient for degenerative disc disease of lumbar spine with lumbar radiculopathy symptoms, scoliosis. Today her pain is a 7 out of 10 primarily in her low back that radiates into her bilateral lower extremities. Patient describes this as a aching, throbbing sensation that is worse with activity. Patient states she has a hard time performing ADLs and even being able to walk around for short distances due to the pain. Patient previously had 100% relief of her pain symptoms following a intrathecal pain pump trial on 11/19/2021. She was able to improve her normal activity including going to the restroom by herself. Patient was able to walk for longer periods of time and had pain-free symptoms. Patient has in the past been on [place] 10 mg, muscle relaxers, Tylenol and ibuprofen however none of these provided significant improvement of her symptoms. Patient has also tried topical creams, heat and ice, physical therapy however her symptoms were not relieved. Patient continues to do home exercises and stretching however has had worsening of her symptoms. Patient denies any new trauma or injury to the site. She denies any change to the location or type of pain she experiences. She is currently prescribed clonazepam 1 mg twice a day by Dr. Mo's office. Patient denies any side effects from this medication. She states this medication does help manage her symptoms. Patient does have COPD and is O2 dependent on 2 L during the day and 4 L at night. Patient has had injective therapy in the past that provided improvement of her symptoms however did not provide long-term results. Her Ori is [id number]. It has been reviewed and appropriate. Review of Systems: General: No recent weight changes, no fever, no sleep disturbances Respiratory: No cough, no shortness of air, no recurring pulmonary infections Cardiovascular/peripheral vascular: No chest pain, no palpitations, no edema, no shortness of breath Gastrointestinal: No new onset incontinence, normal bowel movements reported Genitourinary: No new onset incontinence Musculoskeletal: [Low back pain, bilateral leg pain] Psychiatric: [Normal mood/affect] Neurological: [Denies weakness in extremities], [denies balance issues] Objective:: Physical Exam: General: Alert and oriented x3, no acute distress, pleasant and cooperative Lungs: Respirations even and unlabored, symmetrical chest expansion Eyes: PERRL Musculoskeletal: Flexion and extension of lumbar [spine] somewhat guarded secondary to pain, [antalgic gait noted] Neurological: Speech clear, no gross sensory deficit Assessment:: Degenerative disc disease of lumbar spine with lumbar radiculopathy symptoms, scoliosis Plan:: Patient continues to have worsening symptoms in her low back that radiate into her bilateral lower extremities. Patient had 100% relief with her previous intrathecal pain pump trial for chronic pain. Patient would like to proceed forward with the intrathecal pain pump implant. Risk and benefits were discussed with the patient. Patient does have persistent pain related to degenerative disc disease of lumbar spine with lumbar radiculopathy symptoms. Patient has tried and failed conservative therapies such as oral medications such as [place], topical medications, heat and ice, injective therapy, physical therapy, at home exercises and stretching for more than 6 weeks. Patient has had a psychiatric evaluation that stated she was an appropriate candidate for this procedure. Patient does not have any psychiatric conditions or substance related disorders that would cause contraindications with a intrathecal pain pump. Patient has no signs of infection currently. Patient has no known drug allergies that would interfere with pump medication. Patient's body
[2022-01-03 11:04] VITALS: BP 135/115; PULSE 61; RESP 18; TEMP 36.4; O2SAT 100; BMI 28.0
== END ==
PROVIDERS: PCP Internal Medicine Adolescent Medicine; Visit Provider Nurse Practitioner Family
DX: M51.16 Intervertebral disc disorders with radiculopathy, lumbar region (principal); M41.9 Scoliosis, unspecified
CPT/HCPCS: 99212; G0463

== ENCOUNTER 2022-01-18 09:29 | Day surgery (SDC) | payer MEDICARE, SELFPAY ==
[2022-01-18 09:57] VITALS: BP 154/61; PULSE 60; RESP 20; TEMP 36.6; O2SAT 100; BMI 28.0
--- NOTE | 2022-01-18 10:02 | EXP.PAIN.PRO ---
Procedure Date: 01/18/22 Time: 10:02 Anesthesiologist:: James Burgos CRNA Complications:: None Pre-procedure Diagnosis:: Degenerative disc disease MR spine multilevels. Lumbar radiculopathy symptoms. Lumbar postlaminectomy syndrome. Post-procedure Diagnosis:: Same. Indications for Procedure:: Very pleasant 76-year-old female that comes to our clinic today for repeat lumbar epidural steroid injection at the L4-5 level. Patient describes her pain as constant, dull, aching. She also complains of bilateral hip and leg radicular symptoms at times. She rates her pain 8/10. Procedure Details:: Procedure: Lumbar epidural steroid injection under fluoroscopy Informed consent was obtained and the risks and benefits of the procedure were explained to the patient. The patient was taken to the procedure room and noninvasive monitors placed, including noninvasive blood pressure cuff and pulse oximeter. The back was viewed using C-arm Fluoroscopy and prepped using Betadine as a cleansing solution and the L4-L5 interspace was palpated. Skin and subcutaneous tissues were anesthetized using lidocaine 1.5% and a 25-gauge needle. After this, an 18-gauge Touhy epidural needle was placed into the L4-L5 interspace and advanced using fluoroscopic guidance and loss of resistance to air until the epidural space was encountered. After confirmation of needle placement in the epidural space, with dye, a solution containing lidocaine 1.5%, 4 mL and Depo-Medrol 80 mg were incrementally injected into the lumbar epidural space. The patient tolerated the procedure well with no complications. The patient was observed in the Pain Clinic and then discharged home neurologically intact. Plan and Disposition:: Patient was discharged without incident.
[2022-01-18 10:06] VITALS: BP 148/64; PULSE 55; RESP 18; O2SAT 100
== END 2022-01-18 10:07 | disposition home or self-care (01) ==
PROVIDERS: PCP Internal Medicine Adolescent Medicine; Visit Provider Nurse Anesthetist, Certified Registered
DX: M51.16 Intervertebral disc disorders with radiculopathy, lumbar region (principal); M96.1 Postlaminectomy syndrome, not elsewhere classified
CPT/HCPCS: 62323; J1040

== ENCOUNTER → 2022-02-03 13:53 | Outpatient (POV) | payer MEDICARE, SELFPAY ==
[2022-02-03 14:02] VITALS: BP 143/70; PULSE 55; RESP 20; TEMP 36.9; O2SAT 100; BMI 28.0
--- NOTE | 2022-02-03 14:05 | A.OFFVIS_ITS ---
[facility] Pain Management SOAP Note Subjective:: Patient is a pleasant 76-year-old female who presents today for follow-up of lumbar epidural steroid injection on L4-L5 on 01/18/2022. We are currently treating the patient for degenerative disc disease of lumbar spine multilevels with lumbar radiculopathy symptoms, lumbar postlaminectomy syndrome. Today the patient states she has had at least 60% improvement of her pain symptoms following that injection and feels like it is still continuing to give some relief. She rates her pain a 6 out of 10 and states the pain is primarily in her low back with radicular symptoms into her lower extremities. Patient denies any new trauma or injury. She states this is the same pain she has been exp eriencing. Patient is currently prescribed clonazepam 1 mg twice a day by Dr. Mo's office. Patient denies any side effects from this medication. She states this medication does help with her anxiety issues. Patient is O2 dependent. Patient states she is scheduled for a sleep study in February. Her Ori is [id number]. It is been reviewed and appropriate. Review of Systems: General: No recent weight changes, no fever, no sleep disturbances Respiratory: No cough, no shortness of air, no recurring pulmonary infections Cardiovascular/peripheral vascular: No chest pain, no palpitations, no edema, no shortness of breath Gastrointestinal: No new onset incontinence, normal bowel movements reported Genitourinary: No new onset incontinence Musculoskeletal: Low back pain Psychiatric: [Normal mood/affect] Neurological: [Denies weakness in extremities], [denies balance issues] Objective:: Physical Exam: General: Alert and oriented x3, no acute distress, pleasant and cooperative Lungs: Respirations even and unlabored, symmetrical chest expansion Eyes: PERRL Musculoskeletal: Flexion and extension of lumbar [spine] somewhat guarded seco ndary to pain, [antalgic gait noted] Neurological: Speech clear, no gross sensory deficit Assessment:: Degenerative disc disease of lumbar spine multilevels with lumbar radiculopathy symptoms, lumbar postlaminectomy syndrome Plan:: Patient has had significant improvement of her pain symptoms following her lumbar epidural steroid injection at L4-L5. Patient did have limited range of motion of her lumbar spine during today's visit however at this time the patient does not require any additional injective therapy. I will order the patient a compounding cream at today's visit. We will schedule the patient for a 1 month follow-up. Patient will return to clinic in 1 month for reevaluation of sy mptoms and follow-up. Patient has been instructed to contact the clinic with any concerns before the next appointment. Dr. Osullivan has reviewed this note and agrees with this plan of care. This note was dictated using voice recognition software and make contain errors or omissions. [facility] Medical History Carpal tunnel syndrome Surgical History H/O hysterectomy for benign disease History of cholecystectomy Family History Other Family history non-contributory Social History (Updated 01/18/22 @ 10:02 by Tammie Billings RN) Smoking Status: Former smoker alcohol intake: never substance use type: former substance user and marijuana current occupational status: disabled Travel in the last 8 weeks: None household members: significant other and family housing: house current occupational exposures/hazards: No caffeine: Yes
== END ==
PROVIDERS: PCP Internal Medicine Adolescent Medicine; Visit Provider Nurse Practitioner Family
DX: M51.16 Intervertebral disc disorders with radiculopathy, lumbar region (principal); M96.1 Postlaminectomy syndrome, not elsewhere classified
CPT/HCPCS: 99212; G0463

== ENCOUNTER → 2022-03-07 13:11 | Outpatient (POV) | payer MEDICARE, SELFPAY ==
[2022-03-07 13:51] VITALS: BP 130/48; PULSE 60; RESP 18; O2SAT 98; BMI 28.0
--- NOTE | 2022-03-07 13:55 | EXP.PAIN.SOA ---
[facility] Pain Management SOAP Note Subjective:: Patient is a pleasant 76-year-old female who presents today for follow-up. We are currently treating the patient for degenerative disc disease of lumbar spine multilevels with lumbar radiculopathy symptoms, lumbar postlaminectomy syndrome. Today the patient rates her pain a 8 out of 10. Patient denies any new trauma or injury. Patient denies any change to location or type of pain she experiences. Patient states the pain is all in her low back and radiates into her lower extremities. Her last lumbar epidural steroid injection was 01/18/2022 at L4 and L5 and provided at least 60 to 70% improvement lasting approximately 6 weeks. Patient states she was able to increase her activity with better ambulation and ability to perform activities of daily living. Today she states she has noticed significantly worsening pain where she is getting back to her previous baseline. Patient was previously at [facility] in [place] for approximately 2-1/2 years where she was prescribed [place] 10 mg along with a muscle relaxer that provided minimal improvement of her symptoms. Patient is currently managed with clonazepam 1 mg twice a day from Dr. Mo's office. Patient denies any side effects from this medication. She states this medication does help with her anxiety issues patient is O2 dependent and frequently uses a wheelchair for additional ambulation. Patient is scheduled for a sleep study later this month. Her Ori is [id number]. It has been reviewed and appropriate. Review of Systems: General: No recent weight changes, no fever, no sleep disturbances Respiratory: No cough, no shortness of air, no recurring pulmonary infections Cardiovascular/peripheral vascular: No chest pain, no palpitations, no edema, no shortness of breath Gastrointestinal: No new onset incontinence, normal bowel movements reported Genitourinary: No new onset incontinence Musculoskeletal: Low back pain, bilateral leg pain Psychiatric: [Normal mood/affect] Neurological: [Denies weakness in extremities], [denies balance issues] Objective:: Physical Exam: General: Alert and oriented x3, no acute distress, pleasant and cooperative Lungs: Respirations even and unlabored, symmetrical chest expansion Eyes: PERRL Musculoskeletal: Flexion and extension of lumbar [spine] somewhat guarded secondary to pain, [antalgic gait noted] Neurological: Speech clear, no gross sensory deficit Assessment:: Degenerative disc disease of lumbar spine multilevels with lumbar radiculopathy symptoms, lumbar postlaminectomy syndrome Plan:: Patient is experiencing worsening pain in her low back that radiates into her bilateral lower extremities. Patient did have limited range of motion of her lumbar spine at today's visit. Patient previously had significant improvement following a epidural steroid injection providing 60 to 70% improvement lasting for approximately 6 weeks. Patient has tried and failed oral medications, topical medications, heat and ice, at home exercising and stretching for longer than 6 weeks. I have discussed with the patient that she may benefit from an additional lumbar epidural steroid injection. Risk and benefits were discussed with the patient. She would like to proceed forward with this plan of care. Patient is currently on Eliquis and will need to come off this medication 1 week prior to this injection. We will contact her primary care physician to confirm the patient can stop this medication we will schedule the patient for a LESI L4-L5. Patient has been instructed to contact the clinic with any concerns before the next appointment. Dr. Osullivan has reviewed this note and agrees with this plan of care. This note was dictated using voice recognition software and make contain errors or omissions. [facility] Medical History Carpal tunnel syndrome Surgical History (Reviewed 01/18/22 @ 10:02 by George
== END ==
PROVIDERS: Visit Provider Nurse Practitioner Family
DX: M51.16 Intervertebral disc disorders with radiculopathy, lumbar region (principal); M96.1 Postlaminectomy syndrome, not elsewhere classified
CPT/HCPCS: 99212; G0463

== ENCOUNTER → 2022-03-08 20:15 | Outpatient (CLI) | payer MEDICARE, SELFPAY | PROVIDERS: PCP Internal Medicine Adolescent Medicine; Visit Provider Nurse Practitioner Family | DX: G47.33 Obstructive sleep apnea (adult) (pediatric) (principal); R09.02 Hypoxemia; R06.83 Snoring | CPT/HCPCS: 95810 ==

== ENCOUNTER 2022-03-22 10:59 | Day surgery (SDC) | payer MEDICARE, SELFPAY ==
[2022-03-22 11:13] VITALS: BP 135/50; PULSE 55; RESP 18; TEMP 37; O2SAT 99; BMI 28.6
[2022-03-22 11:15] VITALS: BP 153/90; PULSE 65; RESP 20; O2SAT 96
--- NOTE | 2022-03-22 11:22 | EXP.PAIN.PRO ---
Procedure Date: 03/22/22 Time: 11:20 Anesthesiologist:: James Burgos CRNA Complications:: None Pre-procedure Diagnosis:: Degenerative disc disease lumbar spine multilevels. Lumbar radiculopathy. Postlaminectomy syndrome Post-procedure Diagnosis:: Same. Indications for Procedure:: Patient is a pleasant 76-year-old female that comes our clinic today for repeat lumbar epidural steroid injection at the L4-5 level. Patient reports 6 to 8 weeks of significant provement terms of her low back pain as well as bilateral hip and leg pain with her first injection. Patient states she was able to ambulate with minimal pain after receiving the injection Procedure Details:: Procedure: Lumbar epidural steroid injection under fluoroscopy Informed consent was obtained and the risks and benefits of the procedure were explained to the patient. The patient was taken to the procedure room and noninvasive monitors placed, including noninvasive blood pressure cuff and pulse oximeter. The back was viewed using C-arm Fluoroscopy and prepped using Chloraprep as a cleansing solution and the L4-L5 interspace was palpated. Skin and subcutaneous tissues were anesthetized using lidocaine 1.5% and a 25-gauge needle. After this, an 18-gauge Touhy epidural needle was placed into the L4-L5 interspace and advanced using fluoroscopic guidance and loss of resistance to air until the epidural space was encountered. After confirmation of needle placement in the epidural space, with dye, a solution containing normal saline, 3 mL and Depo-Medrol 80 mg were incrementally injected into the lumbar epidural space. The patient tolerated the procedure well with no complications. The patient was observed in the Pain Clinic and then discharged home neurologically intact. Plan and Disposition:: Patient was discharged without incident
[2022-03-22 11:28] VITALS: BP 144/52; PULSE 55; RESP 20
== END 2022-03-22 11:29 | disposition home or self-care (01) ==
PROVIDERS: PCP Internal Medicine Adolescent Medicine; Visit Provider Nurse Anesthetist, Certified Registered
DX: M51.16 Intervertebral disc disorders with radiculopathy, lumbar region (principal); M96.1 Postlaminectomy syndrome, not elsewhere classified
CPT/HCPCS: 62323; J1040; Q9966

== ENCOUNTER → 2022-04-07 15:31 | Outpatient (POV) | payer MEDICARE, SELFPAY ==
[2022-04-07 15:37] VITALS: BP 128/52; PULSE 53; RESP 18; O2SAT 95; BMI 27.8
--- NOTE | 2022-04-07 16:30 | EXP.PAIN.SOA ---
[facility] Pain Management SOAP Note Subjective:: Patient is a pleasant 76-year-old female who presents today for follow-up. Patient is currently treated for degenerative disc disease of lumbar spine with lumbar radiculopathy symptoms, postlaminectomy syndrome. We have been managing this patient with injective therapy. She recently had 2 rounds of lumbar epidural steroid injection that provided significant relief of more than 70% that lasted for less than 1 month. She has also tried oral medication. Patient is on a wheelchair and oxygen dependent. She is not able to do physical therapy. She continues to have pain in her low back that radiates to her bilateral lower extremities. We have discussed with the patient that she is a good candidate for intrathecal pain pump therapy. We have discussed this system with the patient in detail and she is interested in this. She had a psychiatric evaluation on March 2021 that deemed her appropriate and competent to have intrathecal pain pump therapy. She had a successful intrathecal pain pump trial on 11/19/2021 where she had 80 to 90% better with her pain symptoms. Dr. Osullivan is recommending to proceed with intrathecal pain pump placement. Today, she rates her pain as 5 out of 10. Review of Systems: General: No recent weight changes, no fever, no sleep disturbances Respiratory: No cough, no shortness of air, no recurring pulmonary infections Cardiovascular/peripheral vascular: No chest pain, no palpitations, no edema, no shortness of breath Gastrointestinal: No new onset incontinence, normal bowel movements reported Genitourinary: No new onset incontinence Musculoskeletal: Low back pain Psychiatric: [Normal mood/affect] Neurological: [Denies weakness in extremities], [denies balance issues] Objective:: Physical Exam: General: Alert and oriented x3, no acute distress, pleasant and cooperative, 2LO2. Lungs: Respirations even and unlabored, symmetrical chest expansion Eyes: PERRL Musculoskeletal: Flexion and extension of lumbar [spine] somewhat guarded secondary to pain, [antalgic gait noted] Neurological: Speech clear, no gross sensory deficit Assessment:: Degenerative disc disease of the lumbar spine with lumbar radiculopathy symptoms, postlaminectomy syndrome Plan:: Patient had a successful intrathecal pain pump trial on 11/19/2021. Dr. Osullivan is recommending the patient for permanent placement of intrathecal pain pump. He will start the patient on bupivacaine 5 mg/mL at a rate of 2.5 mg/day with the catheter tip at the L1 vertebral body. We will seek approval for intrathecal pain pump placement. Patient has been instructed to contact the clinic with any concerns before the next appointment. Dr. Osullivan has reviewed this note and agrees with this plan of care. This note was dictated using voice recognition software and make contain errors or omissions. [facility] Disclaimer: The information contained in this section may have been updated after the patient was seen, as this information can be updated by other users. Medical History Carpal tunnel syndrome Chronic hypoxemic respiratory failure Chronic respiratory failure with hypoxia, on home oxygen therapy COPD (chronic obstructive pulmonary disease) Dyspnea on exertion History of sleep apnea Screening for lung cancer Shortness of breath Stopped smoking with greater than 30 pack year history Surgical History (Updated 04/06/22 @ 09:20 by Teressa Williamson, RT) H/O hysterectomy for benign disease History of appendectomy History of arthroscopy of shoulder History of carpal tunnel release History of cholecystectomy History of colonoscopy History of tonsillectomy Family History Other Family history non-contributory Social History Smoking Status: Former smoker alcohol intake: never substance use type: former substance user and marijuana current occupatio
== END ==
PROVIDERS: PCP Internal Medicine Adolescent Medicine; Visit Provider Student in an Organized Health Care Education/Training Program
DX: M51.16 Intervertebral disc disorders with radiculopathy, lumbar region (principal); M96.1 Postlaminectomy syndrome, not elsewhere classified
CPT/HCPCS: 99212; G0463

== ENCOUNTER 2022-05-10 09:10 | Day surgery (SDC) | payer MEDICARE, SELFPAY ==
[2022-05-06 11:59] VITALS: BMI 27.3
[2022-05-10] VITALS (10 sets, daily range): BP systolic 147–185; BP diastolic 72–80; PULSE 50–55; RESP 14–18; TEMP 36.1–37; O2SAT 93–100
== END 2022-05-10 11:09 | disposition home or self-care (01) ==
PROVIDERS: PCP Internal Medicine Adolescent Medicine; Visit Provider Ophthalmology
DX: H25.812 Combined forms of age-related cataract, left eye (principal); H26.20 Unspecified complicated cataract; Z79.899 Other long term (current) drug therapy
CPT/HCPCS: 66982; V2632

== ENCOUNTER 2022-05-27 06:07 | Day surgery (SDC) | payer MEDICARE, SELFPAY ==
[2022-05-24 13:24] VITALS: BMI 28.1
[2022-05-27] VITALS (9 sets, daily range): BP systolic 114–180; BP diastolic 63–92; PULSE 50–561; RESP 15–18; TEMP 36.4–43; O2SAT 92–99
[2022-05-27 07:06] LABS: Basophils # 0.1 K/mm3 (0-0.2); Basophils % 0.9 % (0.1-2.0); Eosinophils # 0.2 K/mm3 (0.0-0.4); Eosinophils % 3.2 % (0.1-12.0); Hematocrit 39.1 % (37.0-47.0); Hemoglobin 12.3 g/dL (12.2-16.2); Lymphocytes # 2.2 K/mm3 (0.7-4.5); Lymphocytes % 34.2 % (10-50); Mean Corpuscular HGB Conc 31.6 g/dL (31.8-35.4); Mean Corpuscular Hemoglobin 29.3 pg (27.0-31.2); Mean Corpuscular Volume 92.7 fl (81-99); Mean Platelet Volume 9.3 fl (7.4-10.4); Monocytes # 0.4 K/mm3 (0.1-1.0); Monocytes % 6.8 % (1.7-9.3); Neutrophils # 3.6 K/mm3 (1.8-7.8); Neutrophils % 54.9 % (37.0-80.0); Platelet Count 220 K/mm3 (142-424); Red Blood Count 4.22 M/mm3 (4.20-5.40); Red Cell Distribution Width 14.3 % (11.5-17.5); White Blood Count 6.5 K/mm3 (4.8-10.8)
[2022-05-27 07:29] LABS: Chloride 103 mmol/L (98-107); Sodium 142 mmol/L (136-145)
[2022-05-27 07:32] LABS: Blood Urea Nitrogen 8 mg/dl (7-17); Carbon Dioxide 36 mmol/L (22.0-30.0); Creatinine Clearance Estimated 62 mL/min (50-200); Estimated Glomerular Filt Rate 120 ml/min (>60); GFR (African American) 145 ML/MIN (>60)
[2022-05-27 07:33] LABS: Calcium 8.5 mg/dl (8.4-10.2); Glucose 87 mg/dl (74-100)
[2022-05-27 07:59] LABS: Amphetamine/Metha Screen,Urine Negative ng/ml (<1000); Benzodiazepines Screen,Urine Negative ng/ml (<200); Cannabinoid Screen,Urine Negative ng/ml (<50); Cocaine Screen,Urine Negative ng/ml (<300); Methadone Screen,Urine Negative ng/ml (<300); Opiate Screen,Urine Negative ng/ml (<300); Phencyclidine Screen,Urine Negative ng/ml (<25)
[2022-05-27 08:12] LABS: Barbiturates Screen,Urine Negative ng/ml (<200)
--- NOTE | 2022-05-27 08:14 | P.PN_ITS ---
[facility] Disclaimer: The information contained in this section may have been updated after the patient was seen, as this information can be updated by other users. Medical History Atrial fibrillation Carpal tunnel syndrome Chronic hypoxemic respiratory failure Chronic respiratory failure with hypoxia, on home oxygen therapy COPD (chronic obstructive pulmonary disease) Dyspnea on exertion History of sleep apnea Screening for lung cancer Shortness of breath Stopped smoking with greater than 30 pack year history Surgical History H/O hysterectomy for benign disease History of appendectomy History of arthroscopy of shoulder History of carpal tunnel release History of cholecystectomy History of colonoscopy History of tonsillectomy Family History Other Family history non-contributory Social History Smoking Status: Former smoker alcohol intake: never substance use type: former substance user and marijuana current occupational status: retired Travel in the last 8 weeks: None household members: significant other and family housing: house current occupational exposures/hazards: No caffeine: Yes [facility] Anesthesia Checklist Patient Identification Patient Identification: Verbal (Name & ) Structural Data Admitted From: Home Planned Operative Procedure/s: pain pump insertion Consent for Planned Operative Procedure(s) Verified: Yes Additional verifications Anesthesia Reactions: No Hx Blood Transfusions: No Blood Transfusion Reaction: No Airway Assessment C-Spine Mobility Assessed: Yes TMJ Mobility Assessed: Yes Dentition: Edentulous Neurological Assessment Level of Consciousness: Awake, Alert and Appropriate Anesthesia Plan Anesthesia Risk discussed: Yes Anesthesia Plan: Verified ASA Class: II Anesthesia Type: MAC
--- NOTE | 2022-05-27 11:40 | EXP.OP.NOTE ---
Date of procedure: 05/27/22 Pre-op Diagnosis:: Degenerative disc disease of lumbar spine with lumbar radiculopathy symptoms and scoliosis Post-op Diagnosis:: Same Procedure performed:: Permanent placement intrathecal pain pump catheter was tunneling and pain pump battery. Surgeon:: Michele Osullivan MD [employer]PER[employer]:: Otoniel Arita Anesthesia: MAC Estimated blood loss (mL): 5 Clinical Note:: This patient is a pleasant 75-year-old white female who we have been treating for low back pain with lumbar radiculopathy symptoms and scoliosis. She has failed all previous conservative treatments including injections, oral medications, physical therapy and she is not a candidate for surgery. She did very well with her intrathecal bupivacaine pain pump trial. She was much more functional. Pain was at a minimum. She is also had a successful psychological evaluation. She presents for permanent placement of her intrathecal pain pump today. Operative findings:: None Operative note:: Informed consent was obtained and the risk and benefits of the procedure were explained to the patient. The patient was taken the operating room placed prone on the procedure table. The patient was prepped and draped in sterile fashion. C-arm fluoroscopy was used to view the right flank. An incision was made between the 12th rib and the iliac crest. A pocket was created for the pump. Ray-Be's were placed in the pocket for hemostasis. C-arm fluoroscopy was then used to view the lumbar spine. The skin and subcutaneous tissues adjacent to the L4-5 and L5-S1 interspace were Using lidocaine. An incision was made. We dissected down to the lumbar paraspinous fascia. A 17-gauge spinal needle was inserted and advanced into the L5-S1 interspace until clear CSF was obtained. After this intrathecal catheter was inserted and advanced very easily to the T8 vertebral body. Catheter placement was posterior based on lateral view. The stylette of the catheter and the needle withdrawn. The catheter was secured to the fascia with an anchoring vice and 2-0 Prolene. I feel the pump was 20 mils of intrathecal bupivacaine 5 mg per mill. I tunneled catheter from the back to the pump pocket and attached catheter to the pump. The Ray-Be's were removed from the pocket. We were able to freely withdraw clear CSF through the pump sideport. The pump was placed in the pocket. Again we checked and again we were able to freely withdraw clear CSF through the sideport. Both incisions were irrigated with antibiotic solution. Both incisions were then closed with 2-0 Vicryl followed by 4-0 nylon and corazon. A wound VAC was placed over both incisions. Patient was placed in an abdominal binder and taken recovery in stable condition. Pump was interrogated and started at 2.5 mg/day of intrathecal bupivacaine. Patient tolerated the procedure well with no complications. Patient was discharged home neurologic intact with good relief of pain symptoms. She was discharged on Bactrim DS twice a day for 5 days. Plan and disposition: We will follow-up with this patient in 1 week for wound check in reprogramming. We will follow-up in 2 weeks for suture and staple removal. If she has any problems or questions she is to call us back in the pain clinic. Condition: stable Disposition: PACU Complications:: None
== END 2022-05-27 10:15 | disposition home or self-care (01) ==
PROVIDERS: PCP Internal Medicine Adolescent Medicine; Visit Provider Anesthesiology
DX: M51.16 Intervertebral disc disorders with radiculopathy, lumbar region; M41.9 Scoliosis, unspecified; Z79.899 Other long term (current) drug therapy
CPT/HCPCS: 62350; 62362; 80048; 80305; 85025; 96374; C1755; C1772

== ENCOUNTER 2022-05-31 08:44 | Day surgery (SDC) | payer MEDICARE, SELFPAY ==
[2022-05-27 13:31] VITALS: BMI 28.1
[2022-05-31] VITALS (7 sets, daily range): BP systolic 135–140; BP diastolic 61–81; PULSE 58–60; RESP 16–18; TEMP 36.8–37.3; O2SAT 92–100
== END 2022-05-31 11:21 | disposition home or self-care (01) ==
LOC: OR 08:45
PROVIDERS: PCP Internal Medicine Adolescent Medicine; Visit Provider Ophthalmology
DX: Z79.899 Other long term (current) drug therapy (principal); H25.811 Combined forms of age-related cataract, right eye
CPT/HCPCS: 66982; V2632

== ENCOUNTER → 2022-06-03 08:17 | Outpatient (POV) | payer MEDICARE, SELFPAY ==
[2022-06-03 08:35] VITALS: BP 150/52; PULSE 66; RESP 18; O2SAT 97; BMI 28.1
--- NOTE | 2022-06-03 09:43 | A.OFFVIS_ITS ---
[facility] Pain Management SOAP Note Subjective:: This patient is a pleasant 76-year-old female that comes our clinic today for follow-up visit after intrathecal pain pump implant. Implant was done on 05/27/2022. Patient is currently being managed with bupivacaine 2.5 mg/day. Patient states complete pain relief. She has no complaint of pain and/or discomfort in any area. Incisions are clean and dry. No sign of infection. Cee are intact. Objective:: Patient is awake alert [place] x3. In no acute distress. Flexion-extension lumbar spine guarded. Deep tendon reflexes upper and lower extremities normal. Motor strength upper and lower extremities normal. There is no gross sensory deficit. Gait is antalgic. She requires a cane for stability. Assessment:: Degenerative disc disease lumbar spine multilevels. Lumbar radiculopathy Plan:: Patient will return to clinic in 2 weeks for staple removal. Otherwise I instructed her to call us in between if in fact she needs anything. [facility] Disclaimer: The information contained in this section may have been updated after the marie ent was seen, as this information can be updated by other users. Medical History Atrial fibrillation Carpal tunnel syndrome Chronic hypoxemic respiratory failure Chronic respiratory failure with hypoxia, on home oxygen therapy COPD (chronic obstructive pulmonary disease) Dyspnea on exertion History of sleep apnea Screening for lung cancer Shortness of breath Stopped smoking with greater than 30 pack year history Surgical History H/O hysterectomy for benign disease History of appendectomy History of arthroscopy of shoulder History of carpal tunnel release History of cholecystectomy History of colonoscopy History of tonsillectomy Family History Other Family history non-contributory Social History Smoking Status: Former smoker alcohol intake: never substance use type: former substance user and marijuana current occupational status: retired Travel in the last 8 weeks: None household members: significant other and family housing: house current occupational exposures/hazards: No caffeine: No
== END ==
PROVIDERS: PCP Internal Medicine Adolescent Medicine; Visit Provider Nurse Anesthetist, Certified Registered
DX: M51.16 Intervertebral disc disorders with radiculopathy, lumbar region (principal); Z97.8 Presence of other specified devices
CPT/HCPCS: 99212; G0463

== ENCOUNTER → 2022-06-20 10:07 | Outpatient (POV) | payer MEDICARE, SELFPAY ==
--- NOTE | 2022-06-20 11:01 | EXP.PAIN.SOA ---
[facility] Pain Management SOAP Note Subjective:: Patient is a pleasant 76-year-old female who presents today for follow-up of intrathecal pain pump implant on 05/27/2022. We are currently treating the patient for degenerative disc disease of lumbar spine with lumbar radiculopathy symptoms, scoliosis. Today she rates her pain a 0 out of 10. Patient denies any new trauma or injury. Patient denies any complications following her surgery. She states that she has been able to increase her activity with less pain symptoms. She does state that she is doing well and had improvement of her incisional site pain. She is currently managed with bupivacaine 5 mg/mL with a daily dose of 2.5003 mg/day. Patient denies any side effects from this medication. She is also managed with clonazepam 1 mg twice a day from her primary care doctor. Patient denies any side effects from this medication. Her Ori is [id number]. Its been reviewed and appropriate. Review of Systems: General: No recent weight changes, no fever, no sleep disturbances Respiratory: No cough, no shortness of air, no recurring pulmonary infections Cardiovascular/peripheral vascular: No chest pain, no palpitations, no edema, no shortness of breath Gastrointestinal: No new onset incontinence, normal bowel movements reported Genitourinary: No new onset incontinence Musculoskeletal: Low back pain Psychiatric: [Normal mood/affect] Neurological: [Denies weakness in extremities], [denies balance issues] Objective:: Physical Exam: General: Alert and oriented x3, no acute distress, pleasant and cooperative Lungs: Respirations even and unlabored, symmetrical chest expansion Eyes: PERRL Musculoskeletal: Flexion and extension of lumbar [spine] somewhat guarded secondary to pain, [antalgic gait noted] Neurological: Speech clear, no gross sensory deficit Skin: Incision sites clean, dry, well approximated with corazon and sutures intact. Minimal erythema noted and no drainage Assessment:: Degenerative disc disease of lumbar spine with lumbar radiculopathy symptoms, scoliosis Plan:: Patient is doing well following her intrathecal pain pump placement and does not need any additional adjustments at this time. I have counseled the patient to continue her postop restrictions of minimal bending, lifting, twisting, no submerging in water until her incisions are fully healed and to continue wearing her abdominal binder to prevent seroma formation. Patient's incision site were clean, dry, well approximated with minimal erythema. Her corazon and sutures were all removed during today's visit and Steri-Strips applied. Patient will return to clinic in 1 month postop evaluation for reevaluation of symptoms and plan of care. She is due for her next pump refill on or before 06/28/2022. Patient has been instructed to contact the clinic with any concerns before the next appointment. Dr. Osullivan has reviewed this note and agrees with this plan of care. This note was dictated using voice recognition software and make contain errors or omissions. -- It Is medically necessary for this patient to continue to have their intrathecal pump refilled at regular intervals. This patient had an intrathecal pain pump implanted after meeting criteria of chronic intractable pain for greater than 3 months and failing conservative treatments. Patient has committed and been compliant to the treatment plan and all planned follow up care. Since implantation of the intrathecal pain pump, the patient has had decreased pain and been more functional. Oral medications have been reduced including intake of oral opioids. Patient continues to do well with intrathecal therapy with decrease in pain symptoms and increase in functional status. Stopping intrathecal medications can lead to life threatening withdrawal, seizures, cardiac arrest, severe pain, and possible . Pumps that are not refilled at regular intervals can be damages and cause and need for replacement. We contin
[2022-06-20 11:52] VITALS: BP 154/65; PULSE 89; RESP 20; O2SAT 98; BMI 29.0
== END ==
PROVIDERS: PCP Internal Medicine Adolescent Medicine; Visit Provider Nurse Practitioner Family
DX: M51.16 Intervertebral disc disorders with radiculopathy, lumbar region (principal); M41.9 Scoliosis, unspecified
CPT/HCPCS: 99212; 99213; G0463

== ENCOUNTER 2022-06-28 12:32 | Day surgery (SDC) | payer MEDICARE, SELFPAY ==
[2022-06-28 11:13] VITALS: BP 118/58; PULSE 59; RESP 18; O2SAT 98
[2022-06-28 12:55] VITALS: BP 141/75; PULSE 63; RESP 18; TEMP 36.9; O2SAT 98; BMI 28.8
--- NOTE | 2022-06-28 13:11 | EXP.PAIN.PRO ---
Procedure Date: 06/28/22 Time: 13:00 Anesthesiologist:: James Burgos CRNA Complications:: None Pre-procedure Diagnosis:: Degenerative disc disease lumbar spine multilevels. Lumbar radiculopathy. Post-procedure Diagnosis:: Same. Indications for Procedure:: This patient is a very pleasant 76-year-old female comes our clinic today for intrathecal pain pump interrogation and refill. She is currently being managed with bupivacaine 5 mg/mL with a daily dose of 2.50 mg/day. We will be changing her to bupivacaine 10 mg/mL. Patient is also being managed with clonazepam 1 mg twice a day from her PCP. Patient states pain is significantly less since the pump is been implanted. She is very happy with it. She does not complain of any side effects from the medication. Procedure Details:: Details of the procedure explained to the patient. The patient in the procedure room placed in the sitting position. The area over the pump was cleansed using chlorhexidine as a cleansing solution. The pump was interrogated. The pump was accessed with ease using a 22-gauge inch and a half needle. 3 mL of solution was withdrawn and discarded appropriately. The pump was then filled with 20 cc incrementally of bupivacaine 10 mg/mL. The rate will continue at 2.5md/day. Plan and Disposition:: Patient was discharged without incident.
== END 2022-06-28 13:13 | disposition home or self-care (01) ==
PROVIDERS: PCP Internal Medicine Adolescent Medicine; Visit Provider Nurse Anesthetist, Certified Registered
DX: Z45.1 Encounter for adjustment and management of infusion pump (principal); M51.16 Intervertebral disc disorders with radiculopathy, lumbar region
CPT/HCPCS: 95991